=== PATIENT | male | born 1990 | race African-American/Black ===

== ENCOUNTER 2019-01-11 16:00 | Inpatient (IN) | payer MEDICAID, OTHER ==
[~2019-01-11] VITALS: Ht 172.7 cm; Wt 66.2 kg
[2019-01-11 16:07] VITALS: BP 174/115
--- NOTE | 2019-01-11 16:19 | NUR ---
AAOX 4 , AMB TO LOBBY.
--- NOTE | 2019-01-11 16:25 | NUR ---
PT PLACE ON CHAIR E, REPORT/CHART GIVEN TO DR WONG, DR SALGUERO ON BREAK
--- NOTE | 2019-01-11 16:27 | NUR ---
DR WONG EVALUATING AAO X4 PT ON CHAIR E
--- NOTE | 2019-01-11 16:53 | NUR ---
PT TRANSFERRED TO BED 10
--- NOTE | 2019-01-11 16:53 | NUR ---
MOVED TO ER BED 10
[2019-01-11] MEDS ORDERED: FUROSEMIDE 40 MG/4 ML VIAL IVP ONE (16:55)
[2019-01-11] MEDS ORDERED: NITROGLYCERIN 2% 1 GM PKT TP ONE (16:55)
--- NOTE | 2019-01-11 17:07 | NUR ---
PT C/O SOB AND FATIGUE X2DAYS. PT STATES CHEST PAIN THAT RADIATES TO ABD, SHARP 8/10 PAIN. NAUSEA, DENIES VOMITING AND DIARRHEA. PT ATTENDS DIALYSIS M,W,F BUT MISSED LAST 2 APPTS DUE TO "NOT FEELING GOOD ENOUGH TO DRIVE" PT HAD FEVER OF 101.3 WEDNESDAY, NO PRESENT FEVER. PT DIALYSIS PORT IN RA. UNLABORED BREATH, NO ACCESSORY MUSCLE USE. PT TAKING DEEP BREATHS. O2 SAT 96 ON RA. PT SITTING IN BED RELAXED, NO RESPIRATORY DISTRESS. MEDHX: CHF, CARDIAC DISEASE, RENAL FAILURE, CHRONIC HTN
--- NOTE | 2019-01-11 17:20 | NUR ---
PT REFUSED NITRO PATCH AND IVP LASIX. STATES NITRO GIVES A HEADACHE AND DOES NOT WANT AN IV STARTED.
[2019-01-11] MEDS ORDERED: FUROSEMIDE 40 MG TAB ONE (17:42)
[2019-01-11] MEDS ORDERED: FUROSEMIDE 40 MG TAB PO ONE (17:45)
[2019-01-11 17:49] LABS: BASOPHILS % (AUTO) 0.3 % (0.0-2.0); EOSINOPHILS # (AUTO) 0.2 K/uL (0-0.4); EOSINOPHILS % (AUTO) 2.9 % (0.0-4.0); HEMATOCRIT 25.6 % (36-52); HEMOGLOBIN 8.3 g/dL (12.0-18.0); LYMPHOCYTES # (AUTO) 0.8 K/uL (2.0-11.5); LYMPHOCYTES % (AUTO) 10.4 % (20.5-51.1); MEAN CORPUSCULAR HEMOGLOBIN 29 pg (27-31); MEAN CORPUSCULAR HGB CONC 32 g/dL (33-37); MEAN CORPUSCULAR VOLUME 88.5 fL (80-94); MONOCYTES # (AUTO) 0.2 K/uL (0.8-1.0); MONOCYTES % (AUTO) 2.4 % (1.7-9.3); NEUTROPHILS # (AUTO) 6.6 K/uL (1.8-7.7); PLATELET COUNT (AUTO) 208 K/uL (140-450); RED BLOOD CELL COUNT(AUTO) 2.89 MIL/uL (4.20-6.10); RED CELL DISTRIBUTION WIDTH 15.7 % (11.6-13.7); WHITE BLOOD COUNT (AUTO) 7.9 K/uL (4.8-10.8)
[2019-01-11 18:10] LABS: ANION GAP 22.5 (8-16); CARBON DIOXIDE 23.8 mmol/L (21-32); POTASSIUM 5.3 mmol/L (3.5-5.1); TOTAL BILIRUBIN 0.7 mg/dL (0.0-1.0)
[2019-01-11 18:11] LABS: ALBUMIN 3.4 g/dL (3.4-5.0)
[2019-01-11 18:16] LABS: CREATININE 15.2 mg/dL (0.7-1.3)
[2019-01-11] MEDS ORDERED: NACL 0.9% 1,000 ML IV SCH (18:43)
[2019-01-11] MEDS ORDERED: DOCUSATE SODIUM 100 MG GELCAP PO PRN (18:45)
[2019-01-11] MEDS ORDERED: HYDROcodone/APAP 7.5/325 MG 1 TAB PO PRN (18:45)
[2019-01-11] MEDS ORDERED: ACETAMINOPHEN 325 MG TAB PO PRN (18:45)
--- NOTE | 2019-01-11 18:58 | NUR ---
PT REFUSED IV. NOTIFIED
[2019-01-11 19:18] LABS: APPEARANCE,URINE CLEAR (CLEAR); BILIRUBIN,URINE NEGATIVE (NEGATIVE); BLOOD, URINE 1+ (NEGATIVE); COLOR,URINE YELLOW (YELLOW); LEUKOCYTE ESTERASE ,URINE NEGATIVE (NEGATIVE); NITRITE, URINE NEGATIVE (NEGATIVE); UGLUCOSE TRACE (NEGATIVE)
[2019-01-11 19:19] LABS: BARBITURATE, URINE NEGATIVE ng/ml (NEG <=200); BENZODIAZEPINE, URINE NEGATIVE ng/mL (NEG <=200); CANNABINOID, URINE NEGATIVE ng/mL (NEG <=50); COCAINE, URINE NEGATIVE ng/mL (NEG <=300); OPIATE, URINE NEGATIVE ng/mL (NEG <=2000); PHENCYCLIDINE SCREEN,URINE NEGATIVE ng/mL (NEG <=25)
--- NOTE | 2019-01-11 19:26 | NUR ---
TECH INTERN NOTIFIED OF CALL FOR DIALYSIS. SUP TO CALL DIALYSIS CENTER FOR ORDERS.
[2019-01-11 19:30] LABS: PROTHROMBIN TIME 11.1 secs (10.8-13.4)
[2019-01-11] MEDS ORDERED: ALBUTEROL SULFATE/IPRATROPIU 3 ML SOL IH PRN (19:30)
[2019-01-11 19:31] LABS: RBC,URINE 0-5 /HPF (0-5)
[2019-01-11 19:35] LABS: MAGNESIUM 2.4 mg/dL (1.8-2.4); PHOSPHORUS 8.3 mg/dL (2.5-4.9)
[2019-01-11 19:36] LABS: THYROID STIMULATING HORMONE 3.05 uIU/mL (0.34-3.74)
--- NOTE | 2019-01-11 19:50 | NUR ---
PT AGREED TO HAVE IV PLACED. 18G IV PLACED ON R EJ. PT TOLERATED WELL.
[2019-01-11] MEDS ORDERED: AMLO10TA PO (19:53)
[2019-01-11] MEDS ORDERED: SPIR25TA21 PO (19:53)
[2019-01-11] MEDS ORDERED: MIRT30TA PO (19:53)
[2019-01-11] MEDS ORDERED: LON10 PO (19:53)
[2019-01-11] MEDS ORDERED: VITA1TAB44 PO (19:53)
[2019-01-11] MEDS ORDERED: ONDA4ODT2 PO (19:53)
[2019-01-11] MEDS ORDERED: DILT120C19 PO (19:53)
[2019-01-11] MEDS ORDERED: CLON0.3T41 PO (19:53)
[2019-01-11] MEDS ORDERED: PRAZ5CAP PO (19:53)
--- NOTE | 2019-01-11 19:58 | NUR ---
Patient will be admitted to care of DR AGUIRRE. Admited to TELE. Will go to room 117. Belongings list completed. Report to SINA DUNCAN.
[2019-01-11 20:05] VITALS: BP 171/97
--- NOTE | 2019-01-11 20:49 | NUR ---
PT REFUSED ABG. WILL NOTIFY
[2019-01-11] MEDS ORDERED: CLONIDINE HCL 0.3 MG PO SCH (21:00)
[2019-01-11] MEDS ORDERED: PRAZOSIN HCL 10 MG PO SCH (21:00)
[2019-01-11] MEDS: MINOXIDIL 10 MG TAB PO SCH (21:00)
[2019-01-11] MEDS ORDERED: DILTIAZEM HCL 240 MG PO SCH (21:00)
[2019-01-11] MEDS: MORPHINE SULFATE 2 MG/ML SYR IVP PRN (21:13)
[2019-01-11] MEDS: ONDANSETRON 4 MG/2 ML VIAL IM/IVP PRN (21:13)
--- NOTE | 2019-01-11 21:13 | NUR ---
MORPHINE 2 MG IVP ADMINISTERED REQUESTED RT PAIN/GENERALIZED.
[2019-01-11] MEDS: MIRTAZAPINE 15 MG TAB PO SCH (21:20)
[2019-01-11 21:45] LABS: CHOL/HDL RATIO 2.6 (1-4.5)
[2019-01-12 00:42] VITALS: BP 170/93
[2019-01-12] MEDS ORDERED: diphenhydrAMINE 50 MG/ML VIAL ONE (00:49)
--- NOTE | 2019-01-12 00:52 | NUR ---
BENADRYL 25 MG IVP ADMINISTERED ORDERED BY MD MARTINEZ/TUMBLER DRIER OPERATOR TO RESIDENT.
[2019-01-12] MEDS ORDERED: diphenhydrAMINE 50 MG/ML VIAL IVP SCH ×2 (01:00→13:12)
--- NOTE | 2019-01-12 02:15 | NUR ---
HEMODIALYSIS DONE. OUTPUT WAS 3.5 LITERS. NO COMPLAINTS DONE. CALL LIGHT WITH IN REACH. VS WNL.
--- NOTE | 2019-01-12 02:18 | NUR ---
HSPT TUTOR INFORMED ME THAT PT. REFUSED TO BE DRAWN BLOOD ORDERED. PER HSPT TUTOR THEY WILL TRY AGAIN LATER AND CONVINCE HIM.
[2019-01-12 04:18] VITALS: BP 171/96
[2019-01-12] MEDS ORDERED: hydrALAZINE 20 MG/ML VIAL IVP SCH (05:30)
--- NOTE | 2019-01-12 06:01 | NUR ---
PT. NEVER SLEPT THE WHOLE NIGHT. " I NEVER SLEEP NO MATTER WHAT KIND OF SLEEPING PILLS THEY GIVE ME. " ABLE TO VERBALIZE NEEDS WELL IN [place]. CALL LIGHT WITH IN REACH. NO FURTHER COMPLAINTS DONE. WATCHING MOVIE IN HIS CELL PHONE ALL NIGHT LONG. ENCOURAGED TO TRY AND RELAX AND SLEEP. "I WILL TRY"
--- NOTE | 2019-01-12 07:25 | NUR ---
RECEIVED PT FROM TRAFFIC SAFETY ADMINISTRATOR NURSESINA, PT IS AWAKE AND SEATED ON THE BED, WATCHING ON HIS CP, IV LINE ON THE RT IJ G. 18 ON N SALINE LOCK, RT AV SHUNT FOR DIALYSIS, SIDE RAILS ARE UP AND CALL LIGHT WITHIN REACH, PT C/O PAIN RATE OF 8/10 ON THE CHEST, WILL MEDICATE AND NO SIGN OF DISTRESS NOTED. WILL MONITOR PT.
[2019-01-12 08:00] VITALS: BP 171/100
[2019-01-12 08:07] LABS: T4 (THYROXINE) 5.8 ug/dL (4.5-12.0)
--- NOTE | 2019-01-12 08:22 | NUR ---
PATIENT HAS BEEN SCREENED AND CATEGORIZED MODERATE NUTRITION RISK. PATIENT WILL BE SEEN WITHIN 3-5 DAYS OF ADMISSION. 01/14/[address]
[2019-01-12] MEDS: SPIRONOLACTONE 25 MG TAB PO SCH (08:29)
[2019-01-12] MEDS: FUROSEMIDE 20 MG/2 ML VIAL IVP SCH (08:29)
[2019-01-12] MEDS: VIT-B COMP/VIT-C/FOLIC ACID 1 TAB PO SCH (08:29)
[2019-01-12] MEDS: cloNIDine 0.1 MG TAB PO SCH ×2 (08:31→20:27)
[2019-01-12] MEDS: MORPHINE SULFATE 2 MG/ML SYR IVP PRN ×2 (08:32→17:43)
--- NOTE | 2019-01-12 08:32 | NUR ---
PT IS AWAKE AND PARAMETER [id number], BP IS 171/100, PULSE I92, O2 SATURATION IS 98%, ORAL AD IV PUSH MEDICATIONS WERE GIVEN, PT C/O PAIN RATE OF 8/10 ON THE CHEST AND PAIN MEDICATION WAS GIVEN WELL. WILL RE-ASSESS MPAIN AND MONITOR PT.
[2019-01-12] MEDS: MINOXIDIL 10 MG TAB PO SCH ×2 (09:00→20:27)
[2019-01-12 11:08] LABS: BASOPHILS # (AUTO) 0.1 K/uL (0.00-0.22); BASOPHILS % (AUTO) 1.5 % (0.0-2.0); EOSINOPHILS # (AUTO) 0.2 K/uL (0-0.4); EOSINOPHILS % (AUTO) 2.3 % (0.0-4.0); HEMATOCRIT 24.1 % (36-52); HEMOGLOBIN 7.9 g/dL (12.0-18.0); LYMPHOCYTES # (AUTO) 0.7 K/uL (2.0-11.5); LYMPHOCYTES % (AUTO) 8.7 % (20.5-51.1); MEAN CORPUSCULAR HEMOGLOBIN 29 pg (27-31); MEAN CORPUSCULAR HGB CONC 33 g/dL (33-37); MEAN CORPUSCULAR VOLUME 88.5 fL (80-94); MONOCYTES # (AUTO) 0.3 K/uL (0.8-1.0); MONOCYTES % (AUTO) 4.3 % (1.7-9.3); NEUTROPHILS # (AUTO) 6.7 K/uL (1.8-7.7); NEUTROPHILS % (AUTO) 83.2 % (42.2-75.2); PLATELET COUNT (AUTO) 201 K/uL (140-450); RED BLOOD CELL COUNT(AUTO) 2.73 MIL/uL (4.20-6.10); RED CELL DISTRIBUTION WIDTH 15.3 % (11.6-13.7); WHITE BLOOD COUNT (AUTO) 8.1 K/uL (4.8-10.8)
[2019-01-12] MEDS: SEVELAMER CARBONATE 800 MG TAB PO SCH ×2 (11:11→17:42)
--- NOTE | 2019-01-12 11:11 | NUR ---
PT IS AWAKE AND ORAL MEDICATION WAS GIVEN PT TOLERATED IT. WILL MONITOR PT.
[2019-01-12 11:22] LABS: ANION GAP 14.3 (8-16); POTASSIUM 4.3 mmol/L (3.5-5.1)
[2019-01-12 11:23] LABS: CREATININE 9.5 mg/dL (0.7-1.3)
[2019-01-12 12:00] VITALS: BP 162/99
[2019-01-12] MEDS ORDERED: DILTIAZEM 120 MG CAPER PO SCH (12:00)
--- NOTE | 2019-01-12 13:20 | NUR ---
PT'S BP WAS CHECKED NOW AND IS 167/104, PULSE IS 101, O2 SATURATION IS 98% AND INFORMED DR. FLORIAN.
--- NOTE | 2019-01-12 13:28 | NUR ---
PT WAS GIVEN BENADRYL IV PUSH NOW PER PT'S REQUEST PRIOR TO DIALYSIS, DR. FLORIAN WAS INFORMED. WILL MONITOR PT.
--- NOTE | 2019-01-12 13:35 | NUR ---
DIALYSIS HAD STARTED TO PT NOW.
--- NOTE | 2019-01-12 14:44 | NUR ---
DR. FLORIAN MADE A VERBAL ORDER TO ,CANCEL THE DAMEONHIN ORDER FOR THE PT. ACKNOWLEDGED AND CARRIED OUT ORDER.
[2019-01-12 16:00] VITALS: BP 154/78
--- NOTE | 2019-01-12 16:30 | NUR ---
DIALYSIS WAS FINISHED NOW AND 3L OUTPUT WAS TAKEN, BP IS 154/78, PULSE IS 89, AND TEMPERATURE IS 97.8. NO SIGN OF DISTRESS NOTED TO THE PT. WILL MONITOR PT.
--- NOTE | 2019-01-12 17:03 | NUR ---
CAME TO PT'S ROOM AND PT IS SLEEPING NOW, RESPIRATION IS EVEN AND NO SIGN OF DISTRESS NOTED. WILL MONITOR PT
[2019-01-12] MEDS: amLODIPine 5 MG TAB PO SCH (17:43)
--- NOTE | 2019-01-12 19:15 | NUR ---
ENDORSED PT TO POWERHOUSE ENGINEER NURSEMIKE, FOR CONTINUITY OF CARE.
--- NOTE | 2019-01-12 19:16 | NUR ---
REPORT RECEIVED FROM AM NURSE AT BEDSIDE. PT IN STABLE CONDITION. AAOX4. INTRODUCED SELF TO PT. BOARD UPDATED. NO COMPLAINTS OF PAIN. NO SOB. AFEBRILE. PT IS AMBULATORY. PT HAS A RIGHT ARM RESTRICTION DUE TO R AV SHUNT. IV SITE R EJ 18G SL PATENT AND INTACT. SKIN WARM, DRY, AND INTACT WITH NO OPEN WOUNDS. BED LOCKED IN LOW POSITION. CALL RODRIGUEZ WITHIN REACH. SAFETY PRECAUTION IN PLACE. ALL NEEDS MET AT THIS TIME.
[2019-01-12 20:00] VITALS: BP 176/107
[2019-01-12] MEDS: MIRTAZAPINE 15 MG TAB PO SCH (20:26)
--- NOTE | 2019-01-12 20:27 | NUR ---
REMERON, CATAPRES, LONITEN, AND TYL GIVEN PO. PT TOLERATED WELL. PT HAS LOW GRADE FEVER OF 99.6. PRAZOSIN UNAVAILABLE IN PSYCHIATRIC. SOUR BLEACHING PLEATER NOTIFIED. SAID SHE WILL CALL [facility] TO REFILL FOR PATIENT.
[2019-01-12] MEDS ORDERED: PRAZOSIN 1 MG CAP PO SCH (21:00)
[2019-01-12] MEDS: PRAZOSIN 1 MG CAP PO SCH (21:21)
--- NOTE | 2019-01-12 21:21 | NUR ---
PRAZOSIN GIVEN PO. PT TOLERATED WELL.
--- NOTE | 2019-01-12 23:30 | NUR ---
PT WATCHING MOVIES ON HIS PHONE. NO S/S OF DISTRESS NOTED. WILL CONTINUE TO MONITOR.
[2019-01-13] VITALS (8 sets, daily range): BP systolic 152–191; BP diastolic 92–121
--- NOTE | 2019-01-13 01:20 | NUR ---
PT WATCHING MOVIES ON HIS PHONE AND TV. NO S/S OF DISTRESS NOTED. PT BLOOD PRESSURE IS HIGH BUT IS A DIALYSIS PATIENT. RESPIRATIONS EVEN, UNLABORED, AND WNL. WILL CONTINUE TO MONITOR.
--- NOTE | 2019-01-13 02:55 | NUR ---
PT SLEEPING COMFORTABLY IN BED BUT AROUSABLE. NO S/S OF DISTRESS NOTED. NO COMPLAINTS OF PAIN. NO SOB. AFEBRILE. WILL CONTINUE TO MONITOR.
[2019-01-13] MEDS: MORPHINE SULFATE 2 MG/ML SYR IVP PRN ×4 (04:18→22:41)
--- NOTE | 2019-01-13 04:18 | NUR ---
BP 178/110. MD NOTIFIED OF PT'S BP. ORDERED HYDRALAZINE IVP. PT TOLERATED WELL. MORPHINE GIVEN FOR 8/10 CHEST PAIN. PT TOLERATED WELL.
[2019-01-13] MEDS ORDERED: hydrALAZINE 20 MG/ML VIAL IVP SCH (04:30)
--- NOTE | 2019-01-13 05:30 | NUR ---
PT AWAKE AND ALERT WATCHING TV. NO S/S OF DISTRESS NOTED. WILL CONTINUE TO MONITOR.
--- NOTE | 2019-01-13 06:45 | NUR ---
PT AWAKE AND ALERT WATCHING MOVIES ON HIS PHONE. NO S/S OF DISTRESS NOTED. PT IN STABLE CONDITION.
--- NOTE | 2019-01-13 07:10 | NUR ---
REPORT RECEIVED FROM NIGHT NURSE AT BEDSIDE. PATIENT BERENICEO X3 IN STABLE CONDITION. NO PAIN REPORTED. IV R EJ SALINE LOCKED 18G. SKIN WARM DRY AND INTACT. REVIEWED PLAN OF CARE. REINFORCEMENT NEEDED. CALL RODRIGUEZ WITHIN REACH. SAFETY PRECAUTIONS IN PLACE. ALL NEEDS MET AT THIS TIME. WILL CONTINUE TO MONITOR. Addendum: 01/13/19 at 0828 by Nakul Cerna RN AAO X4
[2019-01-13] MEDS ORDERED: hydrALAZINE 25 MG TAB PO SCH (09:00)
[2019-01-13] MEDS: cloNIDine 0.1 MG TAB PO SCH ×2 (09:02→20:40)
[2019-01-13] MEDS: MINOXIDIL 10 MG TAB PO SCH ×2 (09:04→20:41)
[2019-01-13] MEDS: DILTIAZEM 120 MG CAPER PO SCH (09:06)
[2019-01-13] MEDS: SEVELAMER CARBONATE 800 MG TAB PO SCH ×3 (09:07→17:40)
[2019-01-13] MEDS: VIT-B COMP/VIT-C/FOLIC ACID 1 TAB PO SCH (09:07)
[2019-01-13] MEDS: SPIRONOLACTONE 25 MG TAB PO SCH (09:07)
[2019-01-13] MEDS: FUROSEMIDE 20 MG/2 ML VIAL IVP SCH (09:08)
[2019-01-13] MEDS: hydrALAZINE 25 MG TAB PO SCH ×3 (09:09→17:40)
[2019-01-13] MEDS: PRAZOSIN 1 MG CAP PO SCH ×3 (09:31→22:38)
--- NOTE | 2019-01-13 09:32 | NUR ---
MEDICATIONS ADMINISTERED PER ORDER. PRN MORPHINE GIVEN POR SARY OF 7. PATIENT TOLERATED WELL AND COMFORTABLE. WILL CONTINUE TO MONITOR
[2019-01-13 10:04] LABS: EOSINOPHILS # (AUTO) 0.4 K/uL (0-0.4); LYMPHOCYTES # (AUTO) 1.2 K/uL (2.0-11.5); MEAN CORPUSCULAR VOLUME 88.6 fL (80-94); WHITE BLOOD COUNT (AUTO) 10.3 K/uL (4.8-10.8)
[2019-01-13 10:06] LABS: BASOPHILS # (AUTO) 0.1 K/uL (0.00-0.22); BASOPHILS % (AUTO) 1.3 % (0.0-2.0); LYMPHOCYTES % (AUTO) 11.2 % (20.5-51.1); MEAN CORPUSCULAR HEMOGLOBIN 29 pg (27-31); MEAN CORPUSCULAR HGB CONC 32 g/dL (33-37); MONOCYTES # (AUTO) 0.7 K/uL (0.8-1.0); MONOCYTES % (AUTO) 6.5 % (1.7-9.3); PLATELET COUNT (AUTO) 170 K/uL (140-450); RED BLOOD CELL COUNT(AUTO) 2.82 MIL/uL (4.20-6.10); RED CELL DISTRIBUTION WIDTH 15.2 % (11.6-13.7)
[2019-01-13 11:32] LABS: ANION GAP 15.4 (8-16); CARBON DIOXIDE 31.8 mmol/L (21-32); POTASSIUM 3.2 mmol/L (3.5-5.1)
[2019-01-13 11:34] LABS: CREATININE 7.5 mg/dL (0.7-1.3)
--- NOTE | 2019-01-13 12:00 | NUR ---
HEMODIALYSIS NURSE AT BEDSIDE TO START HD. WILL CONTINUE TO MONITOR.
[2019-01-13] MEDS ORDERED: diphenhydrAMINE 50 MG/ML VIAL IVP SCH (13:30)
--- NOTE | 2019-01-13 13:32 | NUR ---
MEDICATIONS ADMINISTERED PER ORDER. PATIENT TOLERATED WELL. PATIENT RECEIVING DIALYSIS. WILL CONTINUE TO MONITOR
--- NOTE | 2019-01-13 15:45 | NUR ---
PATIENT ON DIALYSIS. NO DISTRESS NOTED. CONDITION UNCHANGED. WILL CONTINUE TO MONITOR.
--- NOTE | 2019-01-13 15:50 | NUR ---
01/13/19 RD INITIAL ASSESSMENT COMPLETED PLEASE REFER TO NUTRITION ASSESSMENT UNDER CARE ACTIVITY FOR ESTIMATED NUTRITIONAL NEEDS. 1. CONTINUE RENAL DIET WITH NEPRO TID TOLERATED 2. RD PROVIDED NUTRITION EDUCATION, PATIENT ACCEPTED. 3. ENCOURAGE PO INTAKE AND SUPPLEMENT INTAKE ABOVE 50% 4. RD TO FOLLOW-UP 3-5 DAYS, MODERATE RISK COOPER LEBLANC, RD
--- NOTE | 2019-01-13 16:35 | NUR ---
HD COMPLETE, 3L OUT. PATIENT IN NO DISTRESS. WILL CONTINUE TO MONITOR
[2019-01-13 17:25] LABS: MAGNESIUM 1.8 mg/dL (1.8-2.4); PHOSPHORUS 5.3 mg/dL (2.5-4.9)
[2019-01-13] MEDS: amLODIPine 5 MG TAB PO SCH (17:40)
[2019-01-13] MEDS: ONDANSETRON 4 MG/2 ML VIAL IM/IVP PRN (17:47)
--- NOTE | 2019-01-13 17:54 | NUR ---
PATIENT SITTING AT BEDSIDE CHAIR WATCHING TV. NO DISTRESS NOTED. COMPLAINS OF NAUSEA AND PAIN. ZOFRAN AND MORPHINE GIVEN PER MD ORDERS. OTHER SCHEDULED MEDICATIONS DUE GIVEN. PATIENT TOLERATED WELL. WILL CONTINUE TO MONITOR.
[2019-01-13] MEDS ORDERED: hydrALAZINE 20 MG/ML VIAL IVP PRN (18:35)
--- NOTE | 2019-01-13 19:16 | NUR ---
GAVE REPORT TO DUAL RATE DEALER NURSE FOR CONTINUITY OF CARE. PATIENT IN STABLE CONDITION.
--- NOTE | 2019-01-13 19:30 | NUR ---
RECEIVED TELE PATIENT FROM DAY NURSE, A&OX4, RIGHT EXTERNAL JUGULAR 18 G, INTACT, NS LOCK, SITTING ON CHAIR, WATCHING A MOVIE ON PHONE, SKIN INTACT, NO COMPLAINTS OF PAIN, RIGHT AV SHUNT, WILL CONTINUE TO MONITOR.
[2019-01-13] MEDS: MIRTAZAPINE 15 MG TAB PO SCH (20:40)
--- NOTE | 2019-01-13 20:40 | NUR ---
PT BLOOD PRESSURE IS 160/92,HR-96. CALLED DR. LEE AND MADE HER AWARE. SHE SAID TO HOLD THE LABETALOL FOR NOW.
--- NOTE | 2019-01-13 20:45 | NUR ---
PT REFUSED TO TAKE THE MINIPRES AT THIS TIME. BP 160/92. WILL CONTINUE TO MONITOR.
[2019-01-13] MEDS: LABETALOL 100 MG TAB PO SCH (22:36)
--- NOTE | 2019-01-13 22:38 | NUR ---
PT BLOOD PRESSURE ELEVATED AGAIN. DR. LEE MADE AWARE. SHE SAID TO GIVE THE LABETALOL AND ALSO THE MINIPRES THAT PT REFUSED EARLIER. WILL CONTINUE TO MONITOR.
[2019-01-14] VITALS (7 sets, daily range): BP systolic 144–169; BP diastolic 86–107
[2019-01-14] MEDS ORDERED: diphenhydrAMINE 50 MG/ML VIAL IVP ONE (00:10)
[2019-01-14] MEDS: diphenhydrAMINE 50 MG/ML VIAL IVP SCH (00:15)
--- NOTE | 2019-01-14 00:15 | NUR ---
PATIENT COMPLAINED OF ITCHINESS, DR. LEE RESIDENT, MADE AWARE WITH ORDER, BENADRYL WAS GIVEN 25 MG IV PUSH, WILL CONTINUE TO MONITOR.
--- NOTE | 2019-01-14 02:00 | NUR ---
MADE ROUNDS ON PATIENT, WATCHING MOVIES ON PHONE, NO MORE COMPLAINTS OF ITCHING, WILL CONTINUE TO MONITOR.
--- NOTE | 2019-01-14 03:50 | NUR ---
PT ASLEEP. NO C/O ANY PAIN/DISCOMFORT AT THIS TIME.
--- NOTE | 2019-01-14 07:15 | NUR ---
REPORT RECEIVED FROM NIGHT NURSE AT BEDSIDE. PATIENT AAO X4 IN STABLE CONDITION. NO PAIN REPORTED. IV R EJ SALINE LOCKED 18G. SKIN WARM DRY AND INTACT. REVIEWED PLAN OF CARE. REINFORCEMENT NEEDED. CALL RODRIGUEZ WITHIN REACH. SAFETY PRECAUTIONS IN PLACE. ALL NEEDS MET AT THIS TIME. WILL CONTINUE TO MONITOR
--- NOTE | 2019-01-14 07:15 | NUR ---
ENDORSED PATIENT IN STABLE CONDITION TO DAY SHIFT NURSE FOR CONTINUITY OF CARE.
[2019-01-14] MEDS: LABETALOL 100 MG TAB PO SCH ×2 (08:24→20:33)
[2019-01-14] MEDS: SPIRONOLACTONE 25 MG TAB PO SCH (08:24)
[2019-01-14] MEDS: VIT-B COMP/VIT-C/FOLIC ACID 1 TAB PO SCH (08:24)
[2019-01-14] MEDS: DILTIAZEM 120 MG CAPER PO SCH (08:25)
[2019-01-14] MEDS: hydrALAZINE 25 MG TAB PO SCH ×3 (08:25→17:05)
[2019-01-14] MEDS: SEVELAMER CARBONATE 800 MG TAB PO SCH ×3 (08:25→17:06)
[2019-01-14] MEDS: MINOXIDIL 10 MG TAB PO SCH ×2 (08:27→20:34)
[2019-01-14] MEDS: cloNIDine 0.1 MG TAB PO SCH ×2 (08:27→20:35)
[2019-01-14] MEDS: PRAZOSIN 1 MG CAP PO SCH (08:29)
[2019-01-14] MEDS: FUROSEMIDE 20 MG/2 ML VIAL IVP SCH (08:30)
[2019-01-14] MEDS: MORPHINE SULFATE 2 MG/ML SYR IVP PRN ×2 (08:53→17:48)
[2019-01-14] MEDS: ONDANSETRON 4 MG/2 ML VIAL IM/IVP PRN (08:53)
[2019-01-14] MEDS ORDERED: EPOETIN ALFA 10,000 UNITS/ML VIAL SUBQ SCH (09:00)
--- NOTE | 2019-01-14 09:01 | NUR ---
MEDICATIONS ADMINISTERED PER ORDER. ADMINISTERED PRN MORPHINE AND ZOFRAN. PATIENT TOLERATED WELL AND IN NO DISTRESS. WILL CONTINUE TO MONITOR
[2019-01-14] MEDS ORDERED: diphenhydrAMINE 50 MG/ML VIAL IVP SCH (12:00)
--- NOTE | 2019-01-14 12:51 | NUR ---
MEDICATIONS ADMINISTERED PER ORDER. PATIENT TOLERATED WELL AND IN NO DISCOMFORT. SAFETY MEASURES IN PLACE. WILL CONTINUE TO MONITOR
[2019-01-14 16:58] LABS: PHOSPHORUS 5.2 mg/dL (2.5-4.9)
[2019-01-14] MEDS: amLODIPine 5 MG TAB PO SCH (17:05)
--- NOTE | 2019-01-14 17:48 | NUR ---
PRN MORPHINE ADMINISTERED POR PAIN PER PATIENT REQUEST. PATIENT TOLERATED WELL. WILL CONTINUE TO MONITOR.
--- NOTE | 2019-01-14 19:21 | NUR ---
GAVE REPORT TO NIGHT NURSE FOR CONTINUITY OF CARE. PATIENT IN STABLE CONDITION
--- NOTE | 2019-01-14 19:22 | NUR ---
RECEIVED BEDSIDE REPORT FROM DAY RN. PT IS AAOX4 ON ROOM AIR. RESPIRATIONS ARE EQUAL AND UNLABORED. C/C SOB. PT AMBULATORY AND ABLE TO MAKE NEEDS KNOWN, HAS R AV SHUNT HD (MWF) LAST HD 01/13 NEXT DENZEL WEDNESDAY. IV ON R EJ 18G SL. SKIN IS INTACT. POC DISCUSSED. PTS B/P BEING MONITORED. ALL NEEDS MET AT THIS TIME, CALL LIGHT IS WITHIN REACH. WILL CONTINUE TO MONITOR.
[2019-01-14] MEDS: MIRTAZAPINE 15 MG TAB PO SCH (20:35)
--- NOTE | 2019-01-14 20:35 | NUR ---
VITAL SIGNS: 150/94 HR 103 RR 17 98% RA. DENZEL MEDICATIONS GIVEN. HELD MINIPRES WILL RECHECK B/P IN 60-90MIN. ADMINISTERED THREE OTHER TYPES OF B/P MEDICATIONS. EDUCATED PT OF S/E OF MEDICATIONS. GAVE PT JELLO PER REQUEST. CALL LIGHT IS WITHIN REACH. WILL CONTINUE TO MONITOR.
[2019-01-14] MEDS ORDERED: diphenhydrAMINE 50 MG CAP PO ONE (20:50)
--- NOTE | 2019-01-14 21:40 | NUR ---
PT STATES WANTS TO GO AMA PER PT HIS ANXIETY LEVEL IS HIGH AND STATES NOT BEING CONTROLLED WELL HERE IN THE HOSPITAL. PT BEEN RECEIVING BENADRYL 25MG IVP LAST DOSE 8 HOURS AGO. NEW ORDER FOR BENADRYL 50MG PO PT REFUSED. WANTS TO GO HOME PT STATES, " I HAVE BENADRYL AT HOME AND WILL SPOKE MARIJUANA, I NEED TO GO HOME. MY MIND IS MADE UP I ALREADY CALLED MY RIDE." IS AT BEDSIDE EXPLAINING RISK OF LEAVING AMA. PTS CURRENT B/P IS 169/107 HR 104. PT HIGH RISK FOR STROKE. HE VERBALIZED UNDERSTANDING. AMA FORM SIGNED.
--- NOTE | 2019-01-14 22:15 | NUR ---
REMOVED ID BANDS, REMOVED R EJ IV CATH IS INTACT. PT HAS ALL BELONGINGS WITH HIM. [place] SAM WALKING PT OUT TO FRONT LOBBY. PT IS IN STABLE CONDITION AND STEADY GAIT. NO S/S OF DISTRESS.
== END 2019-01-14 22:15 | disposition left against medical advice (07) | DRG 194 ==
LOC: MED 16:00 → MTU 18:43
PROVIDERS: ADMIT General Practice; ATTEND General Practice
PROC: 5A1D70Z Performance of Urinary Filtration, Intermittent, Less than 6 Hours Per Day (ICD-10-PCS; principal; 2019-01-11)
PROC: 5A1D70Z Performance of Urinary Filtration, Intermittent, Less than 6 Hours Per Day (ICD-10-PCS; 2019-01-12)
PROC: 5A1D70Z Performance of Urinary Filtration, Intermittent, Less than 6 Hours Per Day (ICD-10-PCS; 2019-01-13)
DX: I13.2 Hypertensive heart and chronic kidney disease with heart failure and with stage 5 chronic kidney disease, or end stage renal disease (principal); N17.0 Acute kidney failure with tubular necrosis; K72.90 Hepatic failure, unspecified without coma; E87.8 Other disorders of electrolyte and fluid balance, not elsewhere classified; N18.6 End stage renal disease; K21.9 Gastro-esophageal reflux disease without esophagitis; M94.0 Chondrocostal junction syndrome [Tietze]; E83.39 Other disorders of phosphorus metabolism; E87.5 Hyperkalemia; F32.9 Major depressive disorder, single episode, unspecified; E87.6 Hypokalemia; Z53.21 Procedure and treatment not carried out due to patient leaving prior to being seen by health care provider; I50.43 Acute on chronic combined systolic (congestive) and diastolic (congestive) heart failure; Z99.2 Dependence on renal dialysis; D64.9 Anemia, unspecified; Z82.49 Family history of ischemic heart disease and other diseases of the circulatory system; Z83.3 Family history of diabetes mellitus; Z84.1 Family history of disorders of kidney and ureter; Z56.0 Unemployment, unspecified; I16.0 Hypertensive urgency
CPT/HCPCS: 36415; 71045; 80048; 80053; 80305; 81001; 82140; 82150; 83036; 83605; 83690; 83735; 83880; 84100; 84436; 84443; 84484; 85025; 85610; 85730; 87040; 87081; 87086; 90935; 93005; 99285; J0360; J0696; J0885; J1200; J1940; J2270; J2405; J7030; J7060; Q0092; Q0163

== ENCOUNTER 2019-01-29 02:18 | Inpatient (IN) | payer MEDICARE, MEDICAID, OTHER ==
[~2019-01-29] VITALS: Ht 172.7 cm; Wt 70.3 kg
[~2019-01-29 02:18] MED LIST: AMLO10TA PO; CLON0.3T41 PO; DILT120C19 PO; LON10 PO; MIRT30TA PO; ONDA4ODT2 PO; PRAZ5CAP PO; SPIR25TA21 PO; VITA1TAB44 PO
[2019-01-29 02:21] VITALS: BP 180/116
--- NOTE | 2019-01-29 02:21 | NUR ---
28 Y/O M BIB WITH C/O CHEST PAIN WITH SOB X1 WEEK, INCREASING THIS MORNING. 8/10 CHEST PAIN RADIATES TO ABDOMEN. S1,S2 HEART SOUNDS REGULAR AND EVEN. BILATERAL LUNG PULIDO CLEAR. O2 SATURATION AT 95% ON RA. RESPIRATIONS EVEN AND LABORED. PT IN TRIPODING POSTION. PT HYPERTENSIVE AND TACHYCARDIC, BP 180/116 AND HR 105. DENIES V/D AND FEVER/CHILLS. DIALYSIS MWF. RT A/V FISTULA. PT PLACED ON MONITORING SYSTEM. PT SEAT IN BEDSIDE CHAIR FOR COMFORT. ERMD MADE AWARE OF PT STATUS. WILL CONTINUE TO MONITOR. HX: ERSD, CHF, ENLARGED HEART, HTN, HEART DISEASE NKA
--- NOTE | 2019-01-29 02:29 | NUR ---
PT AMBULATED TO BED #11
--- NOTE | 2019-01-29 03:15 | NUR ---
PT CONTINOUS TO BE SEATED IN BEDSIDE. PER PT "IT HELPS ME TO BREATHE BETTER." O2 SATURATION DROPPED TO 92% RA. PT PLACED ON O2 THERAPY, 4L VIA NASAL CANNULA. O2 SATURATION INCREASED TO 100%. WILL CONTINUE TO MONITOR.
[2019-01-29 03:26] LABS: BASOPHILS # (AUTO) 0.1 K/uL (0.00-0.22); BASOPHILS % (AUTO) 1.1 % (0.0-2.0); EOSINOPHILS # (AUTO) 0.4 K/uL (0-0.4); EOSINOPHILS % (AUTO) 3.4 % (0.0-4.0); HEMATOCRIT 24.7 % (36-52); HEMOGLOBIN 7.9 g/dL (12.0-18.0); LYMPHOCYTES # (AUTO) 1.2 K/uL (2.0-11.5); LYMPHOCYTES % (AUTO) 11.1 % (20.5-51.1); MEAN CORPUSCULAR HEMOGLOBIN 29 pg (27-31); MEAN CORPUSCULAR HGB CONC 32 g/dL (33-37); MEAN CORPUSCULAR VOLUME 90.1 fL (80-94); MONOCYTES # (AUTO) 0.1 K/uL (0.8-1.0); MONOCYTES % (AUTO) 1.4 % (1.7-9.3); NEUTROPHILS # (AUTO) 8.8 K/uL (1.8-7.7); PLATELET COUNT (AUTO) 235 K/uL (140-450); RED BLOOD CELL COUNT(AUTO) 2.74 MIL/uL (4.20-6.10); RED CELL DISTRIBUTION WIDTH 14.9 % (11.6-13.7); WHITE BLOOD COUNT (AUTO) 10.6 K/uL (4.8-10.8)
[2019-01-29] MEDS ORDERED: LABETALOL 100 MG/20 ML VIAL IVP ONE (03:40)
--- NOTE | 2019-01-29 03:40 | NUR ---
CONSENT SIGNED FOR CT BY PT.
[2019-01-29 03:41] LABS: PROTHROMBIN TIME 11.4 secs (10.8-13.4)
[2019-01-29 03:43] LABS: ALBUMIN 3.5 g/dL (3.4-5.0); ANION GAP 20.6 (8-16); CARBON DIOXIDE 28.2 mmol/L (21-32); POTASSIUM 3.8 mmol/L (3.5-5.1); TOTAL BILIRUBIN 0.8 mg/dL (0.0-1.0)
[2019-01-29 03:46] LABS: CREATININE 8.9 mg/dL (0.7-1.3)
--- NOTE | 2019-01-29 03:50 | NUR ---
PT HAS INCREASED PAIN, 10/[address] MARTIN MADE AWARE
[2019-01-29] MEDS ORDERED: fentaNYL 0.05 MG/ML VIAL IVP ONE (04:00)
--- NOTE | 2019-01-29 04:56 | NUR ---
PT SEATED ON BEDSIDE CHAIR. VSS AT THIS TIME. WILL CONTINUE TO MONITOR.
--- NOTE | 2019-01-29 05:00 | NUR ---
PT STATED A DECREASE IN PAIN TO 5/10 PAIN.
--- NOTE | 2019-01-29 05:30 | NUR ---
PT SITTING IN CHAIR. VSS. WILL CONTINUE TO MONITOR.
--- NOTE | 2019-01-29 06:30 | NUR ---
PT TO CT WITH PERLA GARDUNO AND JUNITO EMT
--- NOTE | 2019-01-29 06:50 | NUR ---
PT WAS HAVING ANXIETY DURING CT. PT PLACED ON 4L OF O2 FOR COMFORT MEASURES.
--- NOTE | 2019-01-29 07:15 | NUR ---
PT RETURNED FROM CT. PT ON NC 2L OF O2 FOR COMFORT MEASURES.
--- NOTE | 2019-01-29 07:20 | NUR ---
TRANSFER OF CARE AND REPORT GIVEN TO SITAL. SONG.
--- NOTE | 2019-01-29 08:07 | NUR ---
CHECKED ON PT. SLEEPING COMFORTABLY IN HIS BED. O2 SAT 100%, PT ON O2 VIA NC. BREATHING NON-LABORED AND EVEN. NO DISTRESS NOTED AT THIS TIME.
--- NOTE | 2019-01-29 09:29 | NUR ---
Dr. Jones evaluating patient at bedside.
--- NOTE | 2019-01-29 09:41 | NUR ---
checked on pt. c/o of cp at sternum radiating at abdomen 12/10. dr. horn notified. pt sitting on chair. instructed pt to use oxygen via nc, put on O2 via nc at 2lpm. will continue to monitor pt.
[2019-01-29 10:09] LABS: APPEARANCE,URINE CLEAR (CLEAR); BILIRUBIN,URINE NEGATIVE (NEGATIVE); BLOOD, URINE TRACE-I (NEGATIVE); COLOR,URINE YELLOW (YELLOW); LEUKOCYTE ESTERASE ,URINE NEGATIVE (NEGATIVE); NITRITE, URINE NEGATIVE (NEGATIVE); PH,URINE 8.5 (5.0-9.0); UGLUCOSE TRACE (NEGATIVE)
[2019-01-29 10:31] LABS: RBC,URINE 0-5 /HPF (0-5); WBC,URINE 0-5 /HPF (0-5)
[2019-01-29] MEDS ORDERED: NACL 0.9% 1,000 ML IV SCH (10:37)
[2019-01-29] MEDS ORDERED: HYDROcodone/APAP 5/325 MG 1 TAB TAB PO PRN (10:40)
--- NOTE | 2019-01-29 11:09 | NUR ---
PT C/O PAIN. CALLED PHARMACY TO VERIFY ORDER.
--- NOTE | 2019-01-29 11:22 | NUR ---
Dr. Powell evaluating patient at bedside.
--- NOTE | 2019-01-29 11:47 | NUR ---
PATIENT ADMITTED ONTO FLOOR. ADMISSION VITAL SIGNS ARE BP 154/93, AL 95, O2 96%, TEMP 98.2 PATIENT PLACED ON TELE MONITOR, MRSA SWAB OF NARES OBTAINED. IV TO LEFT FOREARM, ON ROOM AIR.
--- NOTE | 2019-01-29 11:47 | NUR ---
Patient will be admitted to care of DR AGUIRRE. Admited to [facility] FLOOR . Will go to room 126. Belongings list completed. Report to PERLA OSBORN.
[2019-01-29 11:52] LABS: BARBITURATE, URINE NEG. ng/ml (NEG <=200); BENZODIAZEPINE, URINE NEG. ng/mL (NEG <=200); CANNABINOID, URINE POS. ng/mL (NEG <=50); COCAINE, URINE NEG. ng/mL (NEG <=300); OPIATE, URINE NEG. ng/mL (NEG <=2000); PHENCYCLIDINE SCREEN,URINE NEG. ng/mL (NEG <=25)
[2019-01-29 12:04] LABS: PHOSPHORUS 7.1 mg/dL (2.5-4.9)
--- NOTE | 2019-01-29 12:15 | NUR ---
PATIENT IS SITTING AT EDGE OF BED WITH ONE SIDE RAIL DOWN. INSTRUCTED PATIENT THAT HE IS POSSIBLY A FALL RISK AND TO GET INTO BED SO I CAN PUT THE BED RAIL UP AND BED ALARM ON. PATIENT REFUSED TO GET INTO BED. PATIENT AMBULATES TO RESTROOM AND PACES IN ROOM FREQUENTLY.
[2019-01-29] MEDS: ONDANSETRON 4 MG/2 ML VIAL IM/IVP PRN (13:24)
[2019-01-29] MEDS: MORPHINE SULFATE 2 MG/ML SYR IVP PRN ×2 (13:24→20:24)
--- NOTE | 2019-01-29 13:25 | NUR ---
ADMINISTERED MORPHINE FOR PAIN 10 AND ZOFRAN FOR NAUSEA. WILL RE-ASSESS PAIN.
--- NOTE | 2019-01-29 15:04 | NUR ---
DIALYSIS CONSENT HAS BEEN SIGNED. DIALYSIS NURSE INFORMED ON COMING TO THE FLOOR FOR DIALYSIS.
[2019-01-29] MEDS ORDERED: diphenhydrAMINE 50 MG/ML VIAL IVP SCH (15:52)
[2019-01-29 16:00] VITALS: BP 166/103
--- NOTE | 2019-01-29 16:07 | NUR ---
ADMINISTERED BENADRYL IVP PRIOR TO DIALYSIS. PT STATED TO ALWAYS RECEIVING IT DURING OR PRIOR D/T ALLERGIES AND ANXIOUSNESS DURING.
[2019-01-29] MEDS: DILTIAZEM 60 MG TAB PO SCH ×2 (16:32→20:27)
[2019-01-29] MEDS: amLODIPine 5 MG TAB PO SCH (16:32)
--- NOTE | 2019-01-29 18:36 | NUR ---
PATIENT IS FINISHING UP WITH HEMODIALYSIS. WILL ENDORSE TO COMMERCIAL CARPET INSTALLER NURSE FOR CONTINUITY OF CARE.
[2019-01-29] MEDS: LORazepam 0.5 MG TAB PO PRN (18:46)
--- NOTE | 2019-01-29 18:46 | NUR ---
ADMINISTERED ATIVAN 0.5MG FOR ANXIETY
--- NOTE | 2019-01-29 19:30 | NUR ---
RECEIVED BEDSIDE REPORT FROM DAY RN. PT IS AAOX4. ON ROOM AIR RESPIRATIONS ARE EQUAL AND UNLABORED. SKIN INTACT. PT IS AMBULATORY WITHOUT ASSIST. IV ON L FA. AV SHUNT ON THANIA. JUST GOT DIALYSIS TODAY 3L OUTPUT. NORMALLY HD M,W,F IN [facility]. LBM WEDNESDAY REPORT LOW APPETITE. POC DISCUSSED WITH PT. ALL QUESTIONS AND CONCERNS ANSWERED. CALL LIGHT IS WITHIN REACH. WILL CONTINUE TO MONITOR.
[2019-01-29 20:00] VITALS: BP 176/107
[2019-01-29] MEDS: MIRTAZAPINE 15 MG TAB PO SCH (20:27)
[2019-01-29] MEDS: cloNIDine 0.1 MG TAB PO SCH (20:27)
--- NOTE | 2019-01-29 20:27 | NUR ---
PT WITH HIGH B/P 176/107 HR 94. ADMINISTERED DENZEL B/P MEDICATIONS. PER PT WANTS TO HOLD MINIPRES 10MG UNTIL B/P IS RECHECKED. PT COMPLAIN OF HOSPITAL FOOD STATES HE HAS NOT EATEN BECAUSE HE HASN'T LIKED ANYTHING. WILL ORDER SANDWICH AND OFFERED JELLO. CALL LIGHT IS WITHIN REACH. WILL CONTINUE TO MONITOR.
[2019-01-29] MEDS: PIPERACILLIN/TAZOBACTAM 2.25 GM in DEXTROSE 5% 50 ML IV SCH (20:28)
[2019-01-29] MEDS: MINOXIDIL 10 MG TAB PO SCH (20:28)
[2019-01-29] MEDS ORDERED: DILTIAZEM 120 MG CAPER PO SCH (21:00)
[2019-01-29] MEDS ORDERED: PRAZOSIN 1 MG CAP PO SCH (21:00)
--- NOTE | 2019-01-29 22:30 | NUR ---
PATIENT IS SLEEPING COMFORTABLY IN BED. CHEST RISE AND FALL. CALL LIGHT IS WITHIN REACH. WILL CONTINUE TO MONITOR.
[2019-01-30] VITALS: BP 174/100
--- NOTE | 2019-01-30 | NUR ---
VITAL SIGNS ARE WITHIN NORMAL LIMITS. ALL NEEDS MET AT THIS TIME. CALL LIGHT IS WITHIN REACH. WILL CONTINUE TO MONITOR.
--- NOTE | 2019-01-30 02:00 | NUR ---
PATIENT IS SLEEPING COMFORTABLY IN BED. CHEST RISE AND FALL. CALL LIGHT IS WITHIN REACH. WILL CONTINUE TO MONITOR.
[2019-01-30] MEDS: ONDANSETRON 4 MG/2 ML VIAL IM/IVP PRN ×3 (03:51→22:18)
[2019-01-30] MEDS: MORPHINE SULFATE 2 MG/ML SYR IVP PRN ×4 (03:51→22:30)
--- NOTE | 2019-01-30 03:51 | NUR ---
ATIVAN AND MORPHINE GIVEN IVP. PT TOLERATED WELL.
[2019-01-30 04:00] VITALS: BP 164/100
[2019-01-30] MEDS: PIPERACILLIN/TAZOBACTAM 2.25 GM in DEXTROSE 5% 50 ML IV SCH ×3 (04:15→20:41)
--- NOTE | 2019-01-30 04:25 | NUR ---
VITAL SIGNS ARE WITHIN NORMAL LIMITS. GAVE JELLO AND ICE CHIPS PER REQUEST. PT SITTING AT EDGE OF BED WATCHING VIDEOS ON CELL PHONE. NO S/S OF DISTRESS. CALL LIGHT IS WITHIN REACH. WILL CONTINUE TO MONITOR.
[2019-01-30] MEDS: MINOXIDIL 10 MG TAB PO SCH ×2 (04:42→20:34)
--- NOTE | 2019-01-30 07:19 | NUR ---
GAVE BEDSIDE REPORT TO DAY RN. PT ENDORSED IN STABLE CONDITION.
--- NOTE | 2019-01-30 07:30 | NUR ---
RECEIVED BEDSIDE REPORT FROM PM RN. PT IS AWAKE, ALERT. ON ROOM AIR RESPIRATIONS ARE EQUAL AND UNLABORED. SKIN INTACT. PT SITTING AT THE EDGE OF THE BED. IV ON L FA. AV SHUNT ON THANIA. POC DISCUSSED WITH PT. ALL QUESTIONS ANSWERED. CALL LIGHT IS WITHIN REACH. WILL CONTINUE TO MONITOR.
[2019-01-30 08:00] VITALS: BP 173/114
--- NOTE | 2019-01-30 08:26 | NUR ---
PATIENT HAS BEEN SCREENED AND CATEGORIZED HIGH NUTRITION RISK. PATIENT WILL BE SEEN WITHIN 1-2 DAYS OF ADMISSION. 01/29/19-01/30/[address]
[2019-01-30] MEDS ORDERED: EPOETIN ALFA 10,000 UNITS/ML VIAL IV SCH (09:41)
[2019-01-30] MEDS: DILTIAZEM 60 MG TAB PO SCH ×4 (09:44→20:29)
[2019-01-30] MEDS: cloNIDine 0.1 MG TAB PO SCH ×2 (09:44→20:31)
[2019-01-30] MEDS: VIT-B COMP/VIT-C/FOLIC ACID 1 TAB PO SCH (09:45)
[2019-01-30] MEDS: SPIRONOLACTONE 25 MG TAB PO SCH (09:45)
--- NOTE | 2019-01-30 09:48 | NUR ---
PT REFUSED HEPARIN, RISKS AND BENEFITS EXPLAINED TO PT, PT STILL REFUSED. PT STATED HEPARIN WILL MESS UP HIS HD.
[2019-01-30] MEDS ORDERED: PRAZOSIN 5 MG PO SCH (11:00)
[2019-01-30 12:00] VITALS: BP 172/112
[2019-01-30] MEDS: LORazepam 0.5 MG TAB PO PRN (12:26)
--- NOTE | 2019-01-30 14:00 | NUR ---
ENDORSED PT TO CHARGE NURSE. PT IN DIALYSIS.
[2019-01-30 16:00] VITALS: BP 151/92
[2019-01-30] MEDS ORDERED: diphenhydrAMINE 50 MG/ML VIAL IVP SCH (16:00)
--- NOTE | 2019-01-30 16:30 | NUR ---
RECEIVED BEDSIDE REPORT FROM CHARGE NURSE ARTUR. PATIENT IS AWAKE, ALERT AND ORIENTEDX4. NO SIGNS OF DISTRESS ON RA. SKIN IS INTACT. AMBULATORY. CONTINENT. IV ON L FA 20 SL. CLEAN, DRY AND INTACT. PATIENT ABLE TO MAKE NEEDS KNOWN. BED IN LOW POSITION. CALL LIGHT WITHIN REACH. WILL CONTINUE TO MONITOR THE PATIENT
--- NOTE | 2019-01-30 16:38 | NUR ---
ADMINISTERED DENZEL MED. EDUCATED ON SIDE EFFECTS. PATIENT TOLERATING WELL. DIALYSIS NURSE AT BEDSIDE
--- NOTE | 2019-01-30 17:00 | NUR ---
COMMUNICATED TO PT ABOUT SPUTUM SAMPLE. SPUTUM CUP AT BEDSIDE.
--- NOTE | 2019-01-30 17:02 | NUR ---
01/30/19 RD INITIAL ASSESSMENT COMPLETED PLEASE REFER TO NUTRITION ASSESSMENT UNDER CARE ACTIVITY FOR ESTIMATED NUTRITIONAL NEEDS. 1. CONTINUE REGULAR DIET TOLERATED 2. RECOMMEND NEPRO BID 3. RD TO FOLLOW-UP 3-5 DAYS, MODERATE RISK [address] RD
[2019-01-30] MEDS: amLODIPine 5 MG TAB PO SCH (17:17)
--- NOTE | 2019-01-30 18:00 | NUR ---
PATIENT IN NO DISTRESS. WILL CONTINUE TO MONITOR
--- NOTE | 2019-01-30 19:05 | NUR ---
GAVE BEDSIDE REPORT TO METAL ENGRAVER NURSE. PATIENT ENDORSED IN STABLE CONDITION
--- NOTE | 2019-01-30 19:35 | NUR ---
RECIEVED PT AAOX4 , NID , O2 SAT90'S , IV SITE INTACT , IV CANNULLA INTACT - POST HEMODIALYSIS , PLAN OF CARE DISCUSSED AND VERBALIZE UNDERSTANDING , ON SAFETY / FALL PRECAUTION PROTOCOL - CALL LIGHT WITHIN REACH - WILL CONT. TO MONITOR .
--- NOTE | 2019-01-30 19:48 | NUR ---
1929 SPUTUM SAMPLE UPTAINED AND SENT TO LAB
[2019-01-30 20:00] VITALS: BP 170/100
[2019-01-30] MEDS: MIRTAZAPINE 15 MG TAB PO SCH (20:33)
[2019-01-30] MEDS: PRAZOSIN 5 MG PO SCH (20:36)
--- NOTE | 2019-01-30 21:00 | NUR ---
REFUSED HEPARIN SQ.
[2019-01-31] VITALS: BP 155/100
--- NOTE | 2019-01-31 00:46 | NUR ---
REFER TO DR. DIA DUE TO SOB , S/E BY DR. DIA - WAITING FOR RUTHER ORDERS , LBP 180/100 STILL NO U.O UNTIL NOW.
[2019-01-31] MEDS ORDERED: hydrALAZINE 20 MG/ML VIAL IVP SCH (01:00)
--- NOTE | 2019-01-31 01:09 | NUR ---
HYDRALAZINE 10MGTIV GIVEN ORDERED - ON CLOSELY WATCH , CALL LIGHT WITHIN REACH.
--- NOTE | 2019-01-31 02:11 | NUR ---
BR RECHECK 153/87 - WILL CONT. TO MONITOR.
[2019-01-31 04:00] VITALS: BP 150/100
[2019-01-31] MEDS: MORPHINE SULFATE 2 MG/ML SYR IVP PRN ×4 (04:07→22:16)
[2019-01-31] MEDS: ONDANSETRON 4 MG/2 ML VIAL IM/IVP PRN ×3 (04:08→22:16)
[2019-01-31] MEDS: PIPERACILLIN/TAZOBACTAM 2.25 GM in DEXTROSE 5% 50 ML IV SCH ×3 (04:46→20:40)
--- NOTE | 2019-01-31 07:15 | NUR ---
RECEIVED PT FROM WILDLIFE BIOSTATION RESEARCH ECOLOGIST NURSE, PARDEEP, PT IS AWAKE AND SEATED ON THE BED AND USING HIS CP, PT HAS A RT SHUNT FOR DIALYSIS ACCESS, IV LINE ON THE LEFT FA G. 22 ON SALINE LOCK, PT DENIES PAIN AND NO SIGN OF DISTRESS NOTED. WILL MONITOR PT.
[2019-01-31 08:00] VITALS: BP 168/122
[2019-01-31] MEDS: SPIRONOLACTONE 25 MG TAB PO SCH (08:28)
[2019-01-31] MEDS: cloNIDine 0.1 MG TAB PO SCH ×3 (08:29→16:54)
[2019-01-31] MEDS: VIT-B COMP/VIT-C/FOLIC ACID 1 TAB PO SCH (08:29)
[2019-01-31] MEDS: DILTIAZEM 60 MG TAB PO SCH ×4 (08:30→20:40)
[2019-01-31] MEDS: MINOXIDIL 10 MG TAB PO SCH ×2 (08:31→21:26)
[2019-01-31] MEDS: PRAZOSIN 5 MG PO SCH ×2 (08:32→21:25)
--- NOTE | 2019-01-31 08:32 | NUR ---
PT IS AWAKE AND ORAL MEDICATIONS WERE GIVEN AND TOLERATED IT, WILL CONTINUE TO MONITOR PT.
[2019-01-31 12:00] VITALS: BP 157/100
--- NOTE | 2019-01-31 12:12 | NUR ---
IV ZOSYN WAS GIVEN TO PT NOW.
[2019-01-31] MEDS: CALCIUM ACETATE 667 MG TAB PO SCH ×2 (13:15→16:52)
--- NOTE | 2019-01-31 13:15 | NUR ---
ORAL AND BENADRYL IV PUSH WERE GIVEN TO PT NOW PRIOR TO DIALYSIS.
[2019-01-31] MEDS: diphenhydrAMINE 50 MG/ML VIAL IVP PRN ×2 (13:16→21:25)
--- NOTE | 2019-01-31 13:16 | NUR ---
DIALYSIS STARTED NOW.
[2019-01-31 14:16] LABS: BASOPHILS # (AUTO) 0.2 K/uL (0.00-0.22); BASOPHILS % (AUTO) 3.4 % (0.0-2.0); EOSINOPHILS # (AUTO) 0.3 K/uL (0-0.4); EOSINOPHILS % (AUTO) 5.2 % (0.0-4.0); HEMATOCRIT 23.3 % (36-52); HEMOGLOBIN 7.7 g/dL (12.0-18.0); LYMPHOCYTES # (AUTO) 0.7 K/uL (2.0-11.5); LYMPHOCYTES % (AUTO) 11.1 % (20.5-51.1); MEAN CORPUSCULAR HEMOGLOBIN 29 pg (27-31); MEAN CORPUSCULAR HGB CONC 33 g/dL (33-37); MEAN CORPUSCULAR VOLUME 89.3 fL (80-94); MONOCYTES # (AUTO) 0.1 K/uL (0.8-1.0); MONOCYTES % (AUTO) 1.8 % (1.7-9.3); NEUTROPHILS # (AUTO) 5.1 K/uL (1.8-7.7); NEUTROPHILS % (AUTO) 78.5 % (42.2-75.2); PLATELET COUNT (AUTO) 212 K/uL (140-450); RED BLOOD CELL COUNT(AUTO) 2.61 MIL/uL (4.20-6.10); RED CELL DISTRIBUTION WIDTH 15.1 % (11.6-13.7); WHITE BLOOD COUNT (AUTO) 6.5 K/uL (4.8-10.8)
[2019-01-31 14:30] LABS: ANION GAP 12.2 (8-16); CARBON DIOXIDE 30.2 mmol/L (21-32); POTASSIUM 3.4 mmol/L (3.5-5.1)
[2019-01-31 14:36] LABS: CREATININE 5.5 mg/dL (0.7-1.3)
[2019-01-31 16:00] VITALS: BP 155/93
--- NOTE | 2019-01-31 16:25 | NUR ---
DIALYSIS WAS FINISHED NOW AND OUTPUT IS 3L, BP IS 155/93, PULSE IS 96, O2 SATURATION IS 96% AND TEMPERSTURE IS 99. WILL MONITOR PT.
[2019-01-31] MEDS: amLODIPine 5 MG TAB PO SCH (16:52)
[2019-01-31 18:14] LABS: MAGNESIUM 1.8 mg/dL (1.8-2.4); PHOSPHORUS 4.5 mg/dL (2.5-4.9)
[2019-01-31] MEDS ORDERED: POTASSIUM CHLORIDE 10 MEQ TABER PO SCH (18:32)
--- NOTE | 2019-01-31 18:46 | NUR ---
K-DUR 20M3Q WAS GIVEN TO PT FOR K LEVEL OF 3.4.
--- NOTE | 2019-01-31 19:00 | NUR ---
ENDORSED PT TO PATIENT CARE DIRECTOR NURSEGAVINO FOR CONTINUITY OF CARE.
--- NOTE | 2019-01-31 19:05 | NUR ---
RECIEVED PT AAOX4, GCS 15, IV SITE INTACT. RR EVEN/UNLABORED. PT ON CELL PHONE AT THIS TIME SMILING AND TALKING. PLAN OF CARE DISCUSSED AND VERBALIZE UNDERSTANDING , ON SAFETY / FALL PRECAUTION PROTOCOL - CALL LIGHT WITHIN REACH - WILL CONT. TO MONITOR .
[2019-01-31 20:00] VITALS: BP 140/102
[2019-01-31] MEDS: ALBUTEROL SULFATE/IPRATROPIU 3 ML SOL IH PRN (20:09)
--- NOTE | 2019-01-31 20:19 | NUR ---
RECEIVED PATIENT ON ROOM AIR, PULSE OX SAT 98%. PATIENT STATES TO BE FEELING SOB. PRN HHN ADMINISTERED. TOLERATED TX WELL WITHOUT ADVERSE SIDE EFFECTS. PATIENT STATES TO FEEL IMPROVEMENT POST TX. NO ACUTE RESPIRATORY DISTRESS NOTED. WILL CONTINUE TO MONITOR.
--- NOTE | 2019-01-31 21:25 | NUR ---
PT STATES HE IS ITCHING AT THIS TIME AND, "I NEED MY BENADRYL."
[2019-01-31] MEDS: MIRTAZAPINE 15 MG TAB PO SCH (21:26)
--- NOTE | 2019-01-31 22:12 | NUR ---
PT STATES HE IS IN 9/10 PAIN AT THIS TIME, WILL MEDICATE PER ORDERS
[2019-02-01 01:08] VITALS: BP 155/95
[2019-02-01] MEDS: ALBUTEROL SULFATE/IPRATROPIU 3 ML SOL IH PRN (03:13)
[2019-02-01 04:09] VITALS: BP 165/102
[2019-02-01] MEDS: PIPERACILLIN/TAZOBACTAM 2.25 GM in DEXTROSE 5% 50 ML IV SCH ×3 (05:32→20:18)
[2019-02-01] MEDS: MORPHINE SULFATE 2 MG/ML SYR IVP PRN ×4 (05:46→23:07)
--- NOTE | 2019-02-01 07:17 | NUR ---
REPORT GIVEN TO LALITHA DUNCAN
--- NOTE | 2019-02-01 07:20 | NUR ---
RECEIVED REPORT FROM STUDENT TEACHER NURSE. PATIENT IS AWAKE, IN STABLE CONDITION.
[2019-02-01 08:00] VITALS: BP 195/112
[2019-02-01] MEDS: VIT-B COMP/VIT-C/FOLIC ACID 1 TAB PO SCH (08:44)
[2019-02-01] MEDS: cloNIDine 0.1 MG TAB PO SCH ×3 (08:45→17:00)
[2019-02-01] MEDS: CALCIUM ACETATE 667 MG TAB PO SCH ×3 (08:46→17:00)
[2019-02-01] MEDS: DILTIAZEM 60 MG TAB PO SCH ×4 (08:46→20:18)
[2019-02-01] MEDS: EPOETIN ALFA 10,000 UNITS/ML VIAL IV SCH (08:47)
[2019-02-01] MEDS: PRAZOSIN 5 MG PO SCH ×2 (08:48→20:19)
[2019-02-01] MEDS: MINOXIDIL 10 MG TAB PO SCH ×2 (08:49→20:19)
--- NOTE | 2019-02-01 08:57 | NUR ---
MORNING MEDS GIVEN, TOLERATED WELL. PATIENT REFUSED HEPARIN. PATIENT IS AMBULATORY. PATIENT COMPLAIN OF CHEST PAIN RADIATING TO HIS BACK, PATIENT REQUEST MORPHINE AND MORPHINE NOT DUE FOR ANOTHER HOUR WILL MEDICATE WHEN DUE. PATIENT IS SITTING UP EATING CEREAL, APPEARS COMFORTABLE, SPEAKS CLEARLY AND NO ACUTE DISTRESS.
[2019-02-01] MEDS: hydrALAZINE 20 MG/ML VIAL IVP PRN (10:55)
--- NOTE | 2019-02-01 11:09 | NUR ---
PATIENTS BP REASSESSED STILL ELEVATED. PRN HYDRALAZINE GIVEN IVP, MORPHINE GIVEN FOR PAIN IN THE CHEST AND BACK. DR ROBIN AT BEDSIDE.
[2019-02-01] MEDS ORDERED: SPIRONOLACTONE 25 MG TAB PO SCH (11:28)
[2019-02-01 12:00] VITALS: BP 185/104
--- NOTE | 2019-02-01 12:02 | NUR ---
PT TRANSFERRED TO MED SURGE STATUS, TELE BOX REMOVED AT THIS TIME
--- NOTE | 2019-02-01 12:42 | NUR ---
GOT CALL FROM NURSE THAT PT WANTS A BREATHING TX. CHECK ON PT , PT ON ROOM AIR WITH SPO2 OF 97%. CLEAR BREATH SOUNDS. PT SAID HIS THROAT WAS HURTING. EXPLAINED TO PT THAT BREATHING TX WILL NOT HELP WITH PAIN. PT ALSO SAID HIS RT ARM WAS HURTING. PERLA DOTY NOTIFIED. NO SOB OR DISTRESS NOTED. WILL CONTINUE TO MONITOR.
[2019-02-01] MEDS: hydrALAZINE 10 MG TAB PO SCH ×2 (12:47→17:00)
--- NOTE | 2019-02-01 12:56 | NUR ---
SCHEDULED MED GIVEN, PT CHAVA PO WELL, SCHEDULED ZOSYN STARTED, IV SITE WNL. PT WATCHING TV, SITTING UP AT SIDE OF BED, IN NO ACUTE DISTRESS. NO C/O PAIN.
[2019-02-01 16:00] VITALS: BP 174/111
--- NOTE | 2019-02-01 16:54 | NUR ---
PAIN MED GIVEN FOR PAIN AROUND CHEST WITH COUGHING, WILL CONTINUE TO MONITOR.
[2019-02-01] MEDS: amLODIPine 5 MG TAB PO SCH (17:00)
--- NOTE | 2019-02-01 18:05 | NUR ---
PT STATES HE WAS TOLD BY DR MARTINEZ HE WILL GET DIALYSIS TODAY, NO ORDER RECEIVED, WILL INQUIRE [facility]IDENTS REAGARDING HD TODAY.
--- NOTE | 2019-02-01 18:50 | NUR ---
DR MARTINEZ SPOKE TO DIALYSIS NURSE BETZY, NO DILAYSIS TODAY, WILL DO TOMORROW PER DR MARTINEZ, WILL NOTIFY PT WITH POC.
--- NOTE | 2019-02-01 19:23 | NUR ---
REPORT RECEIVED FROM AM NURSE AT BEDSIDE. PT IN STABLE CONDITION. AAOX4. INTRODUCED SELF TO PT. BOARD UPDATED. NO COMPLAINTS OF PAIN. NO SOB. AFEBRILE. PT IS AMBULATORY. IV SITE L FA 20G SL PATENT AND INTACT. SKIN WARM, DRY, AND INTACT WITH NO OPEN WOUNDS. BED LOCKED IN LOW POSITION. CALL RODRIGUEZ WITHIN REACH. SAFETY PRECAUTION IN PLACE. ALL NEEDS MET AT THIS TIME.
--- NOTE | 2019-02-01 20:18 | NUR ---
CARDIZEM, LONITEN, PRAZOSIN, AND REMERON GIVEN PO. JULIAN VERA. PT TOLERATING WELL. Addendum: 02/02/19 at 0009 by Justo Parsons RN ZOFRAN GIVEN IVP FOR NAUSEA.
[2019-02-01] MEDS: MIRTAZAPINE 15 MG TAB PO SCH (20:19)
[2019-02-01] MEDS: ONDANSETRON 4 MG/2 ML VIAL IM/IVP PRN (20:24)
--- NOTE | 2019-02-01 22:00 | NUR ---
PT AWAKE AND ALERT SITTING UP WATCHING TV. NO S/S OF DISTRESS NOTED. WILL CONTINUE TO MONITOR.
[2019-02-01] MEDS ORDERED: diphenhydrAMINE 50 MG/ML VIAL IVP SCH (22:55)
--- NOTE | 2019-02-01 23:07 | NUR ---
MORPHINE GIVEN FOR 7/10 PAIN. BENADRYL GIVEN FOR ITCHINESS. PT TOLERATED WELL.
[2019-02-02] VITALS: BP 196/121
--- NOTE | 2019-02-02 00:45 | NUR ---
PT AWAKE AND ALERT WATCHING MOVIES ON HIS PHONE. NO S/S OF DISTRESS NOTED. WILL CONTINUE TO MONITOR.
[2019-02-02] MEDS: hydrALAZINE 20 MG/ML VIAL IVP PRN ×2 (02:07→11:49)
--- NOTE | 2019-02-02 02:52 | NUR ---
PT SLEEPING COMFORTABLY BUT AROUSABLE. NO S/S OF DISTRESS NOTED. NO COMPLAINTS OF PAIN. NO SOB. AFEBRILE. WILL CONTINUE TO MONITOR.
[2019-02-02] MEDS: PIPERACILLIN/TAZOBACTAM 2.25 GM in DEXTROSE 5% 50 ML IV SCH ×2 (04:00→20:47)
--- NOTE | 2019-02-02 04:00 | NUR ---
JULIAN HUNG AND RUNNING. PT TOLERATING WELL.
--- NOTE | 2019-02-02 05:30 | NUR ---
PT REFUSED BLOOD DRAW.
--- NOTE | 2019-02-02 06:50 | NUR ---
PT SLEEPING COMFORTABLY BUT AROUSABLE. NO S/S OF DISTRESS NOTED. PT IN STABLE CONDITION.
--- NOTE | 2019-02-02 07:11 | NUR ---
RECEIVED ENDORSEMENT FROM FISH WORM GROWER NURSE. PATIENT IS AAOX4, MAURITIAN SPEAKING. RESPIRATIONS ARE EVEN AND UNLABORED ON ROOM AIR. PATIENT DENIES ANY PAIN AT THIS TIME. LEFT FA 20G IV INTACT AND SL. RIGHT UPPER ARM AV SHUNT NOTED. PLAN OF CARE WAS REVIEWED WITH PATIENT, PATIENT VERBALIZED UNDERSTANDING. SAFETY MEASURES IN PLACE, CALL LIGHT WITHIN REACH.
[2019-02-02 08:00] VITALS: BP 192/116
[2019-02-02] MEDS: CALCIUM ACETATE 667 MG TAB PO SCH ×3 (08:37→17:26)
[2019-02-02] MEDS: VIT-B COMP/VIT-C/FOLIC ACID 1 TAB PO SCH (08:37)
[2019-02-02] MEDS: MINOXIDIL 10 MG TAB PO SCH ×2 (08:37→20:48)
[2019-02-02] MEDS: DILTIAZEM 60 MG TAB PO SCH ×4 (08:38→20:48)
[2019-02-02] MEDS: cloNIDine 0.1 MG TAB PO SCH ×3 (08:38→17:27)
[2019-02-02] MEDS: SPIRONOLACTONE 25 MG TAB PO SCH (08:39)
[2019-02-02] MEDS: hydrALAZINE 10 MG TAB PO SCH (08:39)
[2019-02-02] MEDS: PRAZOSIN 5 MG PO SCH ×2 (08:39→20:48)
--- NOTE | 2019-02-02 08:39 | NUR ---
ADMINISTERED SCHEDULED MEDICATIONS. PATIENT TOLERATED WELL. NO OTHER NEEDS AT THIS TIME, WILL CONTINUE TO MONITOR.
[2019-02-02] MEDS: MORPHINE SULFATE 2 MG/ML SYR IVP PRN ×3 (08:57→21:45)
--- NOTE | 2019-02-02 10:15 | NUR ---
OBTAINED VERBAL ORDER FOR HD FROM DR. WATERS AND BP MEDICATION ORDERS. DIALYSIS NURSE AT BEDSIDE. NO OTHER NEEDS AT THIS TIME.
[2019-02-02] MEDS ORDERED: METH4TAB1 PO (11:30)
--- NOTE | 2019-02-02 11:49 | NUR ---
ADMINISTERED HYDRALAZINE IVP PRN FOR BP ABOVE PARAMETERS. PER DR. LIRA HOLD SCHEDULED BP MEDS AND GIVE IV PRN INSTEAD. ADMINISTERED OTHER SCHEDULED MEDICATIONS. PATIENT TOLERATED WELL. NO OTHER NEEDS AT THIS TIME.
[2019-02-02] MEDS: hydrALAZINE 25 MG TAB PO SCH ×2 (12:40→17:27)
--- NOTE | 2019-02-02 12:40 | NUR ---
PER DR. LOBITO BLACKMAN, TO ADMINISTER SCHEDULED PO BP MEDICATIONS. PATIENT'S BP ABOVE PARAMETERS. ADMINISTERED SCHEDULED MEDICATIONS. PATIENT TOLERATED WELL. NO OTHER NEEDS AT THIS TIME, WILL CONTINUE TO MONITOR.
--- NOTE | 2019-02-02 13:40 | NUR ---
HD IS FINISHED, 4L WAS TAKEN OUT. PATIENT IS STABLE AT THIS TIME. NO OTHER NEEDS AT THIS TIME, WILL CONTINUE TO MONITOR.
--- NOTE | 2019-02-02 13:50 | NUR ---
PER LAB, PATIENT REFUSING BLOOD DRAW. DR. ROBIN IS AWARE. Addendum: 02/02/19 at 1523 by Suzi Cote RN PER DR. ROBIN PATIENT NOT TO BE DISCHARGED TODAY.
[2019-02-02] MEDS: diphenhydrAMINE 50 MG/ML VIAL IVP PRN (14:53)
--- NOTE | 2019-02-02 14:53 | NUR ---
ADMINISTERED BENADRYL IVP PRN FOR ITCHING. PATIENT TOLERATED WELL. NO OTHER NEEDS AT THIS TIME.
--- NOTE | 2019-02-02 15:21 | NUR ---
PATIENT SITTING IN BED WATCHING HIS PHONE. NO OTHER NEEDS AT THIS TIME, WILL CONTINUE TO MONITOR.
[2019-02-02 16:00] VITALS: BP 177/114
[2019-02-02] MEDS: amLODIPine 5 MG TAB PO SCH (17:26)
--- NOTE | 2019-02-02 17:30 | NUR ---
ADMINISTERED SCHEDULED MEDICATION. PATIENT TOLERATED WELL. NO OTHER NEEDS AT THIS TIME.
--- NOTE | 2019-02-02 19:22 | NUR ---
ENDORSED TO ARTICULATION OFFICER NURSE JNE FOR CONTINUITY OF CARE. PATIENT IS STABLE AT THIS TIME.
--- NOTE | 2019-02-02 19:23 | NUR ---
RECEIVED BEDSIDE REPORT FROM DAY RN. PT IS AAOX4. ON ROOM AIR RESPIRATIONS ARE EQUAL AND UNLABORED. SKIN INTACT. PT IS AMBULATORY WITHOUT ASSIST. IV ON L FA 20G SL. AV SHUNT ON THANIA. JUST GOT DIALYSIS TODAY 4L OUTPUT. [facility] PT REPORT LOW APPETITE. POC DISCUSSED WITH PT. ALL QUESTIONS AND CONCERNS ANSWERED. CALL LIGHT IS WITHIN REACH. WILL CONTINUE TO MONITOR.
--- NOTE | 2019-02-02 20:47 | NUR ---
DENZEL MEDICATIONS WERE GIVEN. PT TOLERATED WELL. CALL LIGHT IS WITHIN REACH. WILL CONTINUE TO MONITOR.
[2019-02-02] MEDS: MIRTAZAPINE 15 MG TAB PO SCH (20:51)
--- NOTE | 2019-02-02 21:45 | NUR ---
ADMINISTERED MORPHINE FOR 8/10 PAIN. CALL LIGHT IS WITHIN REACH. WILL CONTINUE TO MONITOR.
--- NOTE | 2019-02-02 22:30 | NUR ---
PATIENT IS RESTING COMFORTABLY IN BED. WATCHING VIDEOS ON CELL PHONE. DENIES ANY DISCOMFORT. CALL LIGHT IS WITHIN REACH. WILL CONTINUE TO MONITOR.
[2019-02-03] VITALS: BP 204/135
[2019-02-03] MEDS: diphenhydrAMINE 50 MG/ML VIAL IVP PRN ×3 (00:08→23:34)
[2019-02-03] MEDS: hydrALAZINE 20 MG/ML VIAL IVP PRN ×2 (00:09→23:26)
--- NOTE | 2019-02-03 00:09 | NUR ---
PRN HYDRALAZINE GIVEN FOR B/P 204/135 HR 112. ADMINISTERED BENADRYL PT TOLERATED WELL. CALL LIGHT IS WITHIN REACH. WILL CONTINUE TO MONITOR.
[2019-02-03 01:21] VITALS: BP 176/112
--- NOTE | 2019-02-03 01:22 | NUR ---
B/P TRENDING DOWN: 176/112 HR 108. PAGED RT PER REQUEST PT SAT 100% RA RR 17 HAS SOME WHEEZING. CALL LIGHT IS WITHIN REACH. WILL CONTINUE TO MONITOR.
[2019-02-03] MEDS: ALBUTEROL SULFATE/IPRATROPIU 3 ML SOL IH PRN (01:26)
[2019-02-03] MEDS: MORPHINE SULFATE 2 MG/ML SYR IVP PRN ×3 (03:25→13:29)
[2019-02-03] MEDS: LORazepam 0.5 MG TAB PO PRN (03:29)
--- NOTE | 2019-02-03 03:29 | NUR ---
ADMINISTERED MORPHINE FOR PAIN 12/10 AND PO ATIVAN FOR ANXIETY. PT STATES HE HAS NOT BEEN ABLE TO SLEEP SINCE ADMISSION ON WEDNESDAY. PER PT STATES DOCTORS SAID ITS CONTRIBUTING TO ELEVATED B/P. ALL NEEDS MET AT THIS TIME. SAFETY MEASURES ARE IN PLACE. WILL CONTINUE TO MONITOR.
[2019-02-03] MEDS: PIPERACILLIN/TAZOBACTAM 2.25 GM in DEXTROSE 5% 50 ML IV SCH ×3 (04:03→20:39)
--- NOTE | 2019-02-03 06:49 | NUR ---
PT IS SLEEPING COMFORTABLY IN BED. CHEST RISE AND FALL. NO S/S OF DISTRESS. CALL LIGHT IS WITHIN REACH. WILL CONTINUE TO MONITOR.
--- NOTE | 2019-02-03 07:24 | NUR ---
GAVE BEDSIDE REPORT. PT ENDORSED IN STABLE CONDITION.
--- NOTE | 2019-02-03 07:25 | NUR ---
RECEIVED ENDORSEMENT FROM CARAMEL COLORING OPERATOR NURSE. PATIENT IS AAOX4, SOLOMON ISLANDER SPEAKING. RESPIRATIONS ARE EVEN AND UNLABORED ON ROOM AIR. PATIENT DENIES ANY PAIN AT THIS TIME. LEFT FA 20G IV INTACT AND SL. RIGHT UPPER ARM AV SHUNT NOTED. PLAN OF CARE WAS REVIEWED WITH PATIENT, PATIENT VERBALIZED UNDERSTANDING. SAFETY MEASURES IN PLACE, CALL LIGHT WITHIN REACH.
[2019-02-03 08:00] VITALS: BP 208/139
[2019-02-03] MEDS: cloNIDine 0.1 MG TAB PO SCH ×3 (08:18→17:41)
[2019-02-03] MEDS: DILTIAZEM 60 MG TAB PO SCH ×4 (08:18→20:37)
[2019-02-03] MEDS: CALCIUM ACETATE 667 MG TAB PO SCH ×3 (08:19→17:39)
[2019-02-03] MEDS: hydrALAZINE 25 MG TAB PO SCH ×3 (08:20→17:42)
[2019-02-03] MEDS: VIT-B COMP/VIT-C/FOLIC ACID 1 TAB PO SCH (08:20)
[2019-02-03] MEDS: SPIRONOLACTONE 25 MG TAB PO SCH (08:20)
[2019-02-03] MEDS: MINOXIDIL 10 MG TAB PO SCH ×2 (08:21→20:38)
[2019-02-03] MEDS: PRAZOSIN 5 MG PO SCH ×2 (08:22→21:39)
[2019-02-03] MEDS: EPOETIN ALFA 10,000 UNITS/ML VIAL IV SCH ×2 (08:23→08:26)
--- NOTE | 2019-02-03 08:26 | NUR ---
ADMINISTERED SCHEDULED MEDICATIONS. PATIENT TOLERATED WELL. NO OTHER NEEDS AT THIS TIME, WILL CONTINUE TO MONITOR.
[2019-02-03] MEDS ORDERED: NIFEdipine 30 MG TABER PO SCH (09:19)
[2019-02-03] MEDS ORDERED: CARVEDILOL 6.25 MG TAB PO SCH (09:19)
--- NOTE | 2019-02-03 09:45 | NUR ---
ADMINISTERED SCHEDULED MEDICATIONS. PATIENT TOLERATED WELL. NO OTHER NEEDS AT THIS TIME, WILL CONTINUE TO MONITOR.
[2019-02-03] MEDS ORDERED: LORazepam 0.5 MG TAB PO PRN (10:10)
[2019-02-03] MEDS: ONDANSETRON 4 MG/2 ML VIAL IM/IVP PRN ×2 (11:02→21:51)
--- NOTE | 2019-02-03 11:02 | NUR ---
ADMINISTERED ZOFRAN IVP PRN FOR NAUSEA, ADMINISTERED BENADRYL FOR ITCHING. NO OTHER NEEDS AT THIS TIME.
--- NOTE | 2019-02-03 13:41 | NUR ---
ADMINISTERED SCHEDULED MEDICATIONS. PATIENT TOLERATED WELL. NO OTHER NEEDS AT THIS TIME.
--- NOTE | 2019-02-03 13:56 | NUR ---
02/03/19 RD FOLLOW UP COMPLETED PLEASE REFER TO NUTRITION ASSESSMENT UNDER CARE ACTIVITY FOR ESTIMATED NUTRITIONAL NEEDS. 1. CONTINUE REGULAR DIET TOLERATED 2. CONTINUE NEPRO BID 3. RD PROVIDED NUTRITION EDUCATION FOR LOW SODIUM DIET 4. RD TO FOLLOW-UP 3-5 DAYS, MODERATE RISK COOPER LEBLANC, RD
[2019-02-03] MEDS ORDERED: MORPHINE SULFATE 4 MG/ML SYR IVP SCH (15:00)
--- NOTE | 2019-02-03 15:02 | NUR ---
PATIENT SITTING IN BED. C/O OF SEVERE PAIN. DR. ROBIN MADE AWARE. TO SEE PATIENT. NO OTHER NEEDS AT THIS TIME.
[2019-02-03 16:00] VITALS: BP 195/125
[2019-02-03] MEDS ORDERED: HYDROmorphone 1 MG/ML AMP IVP PRN (17:30)
--- NOTE | 2019-02-03 17:42 | NUR ---
ADMINISTERED SCHEDULED MEDICATIONS. PATIENT TOLERATED WELL. PATIENT STATED HE COUGHED UP BLOOD. WILL BE MADE AWARE. NO OTHER NEEDS AT THIS TIME.
--- NOTE | 2019-02-03 19:40 | NUR ---
RECIEVED PT AAOX4 , NID - O2 SAT 95 TO 94 , IV SITE INTACT AND PATENT , WITH IV SHUNT AT THE RIGHT UPPER ARM , SITTING ON THE BED WHILE TALKING OVER THE PHONE , NO C/O PAIN AT THIS TIME , WITH EPISODE OF HIGH BP AM NOD REPORTED TO ME, PLAN OF CARE DISCUSSED AND VERBALIZE UNDERSTANDING , NO SAFETY / FALL PRECAUTION PROTOCOL -CALL LIGHT WITHIN REACH - REMINDS PRESS THE CALL LIGHT NEEDED FOR ASSISTANCE. WILL CONT. TO MONITOR.
--- NOTE | 2019-02-03 19:40 | NUR ---
ENDORSED TO SOFTWARE PACKAGING ENGINEER FOR CONTINUITY OF CARE. PATIENT IS STABLE AT THIS TIME.
[2019-02-03] MEDS: CARVEDILOL 6.25 MG TAB PO SCH (20:36)
[2019-02-03] MEDS: MIRTAZAPINE 15 MG TAB PO SCH (21:40)
[2019-02-03] MEDS: MORPHINE SULFATE 4 MG/ML SYR IVP PRN (21:51)
[2019-02-04] VITALS: BP 178/102
[2019-02-04] MEDS: ONDANSETRON 4 MG/2 ML VIAL IM/IVP PRN ×2 (04:01→12:21)
[2019-02-04] MEDS: hydrALAZINE 25 MG TAB PO SCH ×3 (04:12→16:09)
--- NOTE | 2019-02-04 04:12 | NUR ---
REFERRED TO STEPHENIE - DUE TO STILL BP SBP 180 - ORAL HYDRALAZINE GIVEN NOW INSTEAD OF 8AM DUE.- 3X TRIED IV RE INSERTION - BUT STILL ALL FAILED - STEPHENIE AND CHARGE NURSE INFORMED.
[2019-02-04] MEDS ORDERED: ONDANSETRON 4 MG TAB PO ONE (04:50)
[2019-02-04] MEDS: PIPERACILLIN/TAZOBACTAM 2.25 GM in DEXTROSE 5% 50 ML IV SCH ×4 (05:00→20:38)
[2019-02-04] MEDS ORDERED: HYDROmorphone 2 MG TAB PO ONE (05:30)
[2019-02-04] MEDS ORDERED: HYDROcodone/APAP 7.5/325 MG 1 TAB PO PRN (05:50)
--- NOTE | 2019-02-04 05:59 | NUR ---
PT. REFUSED - PAIN MEDICATION - INFORMED STEPHENIE AND CHARGE NURSE.
--- NOTE | 2019-02-04 06:00 | NUR ---
NO IV ACESS - STEPHENIE AND CHARGE NURSE INFORMED.
--- NOTE | 2019-02-04 07:20 | NUR ---
ENDORSED TO AM SHIFT - STILL WITH HIGH BLOOD PRESSURE - STEPHENIE INFORMED NO IV ACCESS -STEPHENIE ON ROUNDS DURING ENDORSEMENT.
--- NOTE | 2019-02-04 07:25 | NUR ---
RECEIVED PT FROM NIGHT NURSE IN STABLE CONDITION. PT AAO X4, DROWSY, SITTING IN BED. SKIN INTACT. NO IV IN PLACE AT THE TIME OF BEDSIDE REPORT WITH PLANS OF INSERTING PICC LINE. RESPIRATIONS EVEN AND UNLABORED ON ROOM AIR. SAFETY MEASURES IN PLACE. BED IN LOW POSITION. CALL LIGHT WITHIN REACH. WILL CONTINUE TO MONITOR.
[2019-02-04 08:00] VITALS: BP 177/108
[2019-02-04] MEDS ORDERED: NIFEdipine 30 MG TABER PO SCH (09:00)
[2019-02-04] MEDS: ALBUTEROL SULFATE/IPRATROPIU 3 ML SOL IH PRN (09:06)
[2019-02-04] MEDS: DILTIAZEM 60 MG TAB PO SCH ×2 (09:24→12:23)
[2019-02-04] MEDS: CARVEDILOL 6.25 MG TAB PO SCH ×2 (09:24→20:34)
[2019-02-04] MEDS: CALCIUM ACETATE 667 MG TAB PO SCH ×3 (09:24→16:09)
[2019-02-04] MEDS: VIT-B COMP/VIT-C/FOLIC ACID 1 TAB PO SCH (09:25)
[2019-02-04] MEDS: cloNIDine 0.1 MG TAB PO SCH ×3 (09:26→16:09)
[2019-02-04] MEDS: SPIRONOLACTONE 25 MG TAB PO SCH (09:26)
[2019-02-04] MEDS: PRAZOSIN 5 MG PO SCH ×2 (09:30→20:37)
[2019-02-04] MEDS: MINOXIDIL 10 MG TAB PO SCH ×2 (09:39→20:36)
--- NOTE | 2019-02-04 09:52 | NUR ---
MEDICATIONS ADMINISTERED PER ORDER. PT TOLERATED WELL, NO DISTRESS NOTED. WILL CONTINUE TO MONITOR.
--- NOTE | 2019-02-04 10:52 | NUR ---
PICC LINE NURSERAMYA AT BEDSIDE TO INSERT PICC LINE. TIMEOUT PROCEDURE DONE. WILL CONTINUE TO MONITOR.
[2019-02-04] MEDS: MORPHINE SULFATE 4 MG/ML SYR IVP PRN ×2 (12:21→18:46)
--- NOTE | 2019-02-04 12:22 | NUR ---
GAVE PT PRN MORPHINE FOR PAIN. WILL CONTINUE TO ASSESS PAIN ACCORDING TO PROTOCOL
[2019-02-04] MEDS: diphenhydrAMINE 50 MG/ML VIAL IVP PRN ×2 (13:29→22:47)
--- NOTE | 2019-02-04 13:41 | NUR ---
ATTEMPTED TO DO EKG PT WHO IS RECEIVING DIALYSIS AT THIS TIME STATES TO DO PROCEDURE AT A LATER TIME.
[2019-02-04 16:00] VITALS: BP 168/117
--- NOTE | 2019-02-04 16:00 | NUR ---
PT COMPLETED HEMODIALYSIS. TOLERATED WELL. 3 L OUTPUT.
--- NOTE | 2019-02-04 16:12 | NUR ---
MEDICATIONS ADMINISTERED PER ORDER. PT TOLERATED WELL, NO DISTRESS NOTED. WILL CONTINUE TO MONITOR
--- NOTE | 2019-02-04 18:45 | NUR ---
GAVE MORPHINE PRN FOR PAIN. PT TOLERATED WELL. WILL CONTINUE TO MONITOR
[2019-02-04] MEDS: hydrALAZINE 20 MG/ML VIAL IVP PRN (18:52)
--- NOTE | 2019-02-04 19:20 | NUR ---
GAVE REPORT TO NIGHT NURSE FOR CONTINUITY OF CARE. PT IN STABLE CONDITION.
--- NOTE | 2019-02-04 19:29 | NUR ---
RECEIVED BEDSIDE REPORT FROM DAY SHIFT NURSE. PATIENT IS AWAKE, ALERT, AND COOPERATIVE. RESPIRATION EVEN UNLABORED ON ROOM AIR. NO DISTRESS NOTED. SKIN IS WARM AND DRY. RIGHT ARM AV SHUNT NOTED. LEFT UPPER ARM PICC LINE NOTED. PLAN OF CARE WAS DISCUSSED. ALL SAFETY MEASURES IN PLACE. BED IS AT LOW POSITION. CALL LIGHT WITHIN REACH AND VERBALIZES ITS USE. WILL CONTINUE TO MONITOR.
[2019-02-04 20:00] VITALS: BP 190/100
--- NOTE | 2019-02-04 20:00 | NUR ---
INITIAL ASSESSMENT DONE. VITALS WERE TAKEN. PATIENT BP 190/100. PATIENT JUST RECEIVED HYDRAZALINE AN HOUR AGO. DR LONDONO IS AWARE OF THE SITUATION SHE ORDER TO CONTINUE SCHEDULED MEDS AND RECHECK AGAIN LATER. WILL CONTINUE TO MONITOR.
[2019-02-04] MEDS: MIRTAZAPINE 15 MG TAB PO SCH (20:33)
[2019-02-04] MEDS: NIFEdipine 30 MG TABER PO SCH (20:35)
--- NOTE | 2019-02-04 21:00 | NUR ---
ALL SCHEDULED MEDS WERE GIVEN PER ORDER. NO ASE NOTED. CALL LIGHT WITHIN REACH. WILL CONTINUE TO MONITOR.
--- NOTE | 2019-02-04 22:54 | NUR ---
PATIENT COMPLAINED OF ITCHINESS ALL OVER THE BODY. PRN BENADRYL GIVEN PER ORDER. WILL CONTINUE TO MONITOR
[2019-02-05] VITALS: BP 204/111
--- NOTE | 2019-02-05 | NUR ---
VITALS WERE TAKEN. PATIENT BP IS HIGH 204/111. NOTIFIED DR. LONDONO. CALL LIGHT WITHIN REACH. WILL CONTINUE TO MONITOR.
[2019-02-05] MEDS: MORPHINE SULFATE 4 MG/ML SYR IVP PRN ×4 (00:59→22:45)
--- NOTE | 2019-02-05 00:59 | NUR ---
PATIENT COMPLAINED OF CHEST PAIN 10/10 RADIATING TO THE BACK. PRN PAIN MED ADMINISTER PER ORDER. WILL CONTINUE TO MONITOR.
[2019-02-05] MEDS ORDERED: LABETALOL 100 MG/20 ML VIAL IV SCH (01:00)
[2019-02-05] MEDS ORDERED: LABETALOL 100 MG/20 ML VIAL ONE (01:04)
--- NOTE | 2019-02-05 01:15 | NUR ---
ADMINISTERED LABETALOL 20MG(4ML) IVP PER DR. LONDONO'S ORDER FOR PATIENT BP. WILL MONITOR ITS EFFECTIVENESS.
--- NOTE | 2019-02-05 02:10 | NUR ---
REASSESSED BP 181/[address] LONDONO ORDER TO GIVE PRN HYDRALAZINE.
[2019-02-05] MEDS: hydrALAZINE 20 MG/ML VIAL IVP PRN ×2 (02:17→13:07)
[2019-02-05 04:00] VITALS: BP 171/98
--- NOTE | 2019-02-05 04:00 | NUR ---
VITALS WERE TAKEN. PATIENT IN STABLE CONDITION. NO DISTRESS NOTED. WILL CONTINUE TO MONITOR.
[2019-02-05] MEDS: PIPERACILLIN/TAZOBACTAM 2.25 GM in DEXTROSE 5% 50 ML IV SCH ×3 (04:25→20:47)
--- NOTE | 2019-02-05 07:12 | NUR ---
ENDORSED PATIENT TO DAY SHIFT NURSE FOR CONTINUITY OF CARE. PATIENT IN STABLE CONDITION,
--- NOTE | 2019-02-05 07:25 | NUR ---
RECEIVED PT FROM NIGHT NURSE. PT IN STABLE CONDITION. SLEEPING, BUT AROUSABLE TO SPEECH, AAO X4. PT DENIES PAIN AND NO DISTRESS IS NOTED. MEDIAL LINE IN PLACE LEFT UA DOUBLE LUMEN. RESPIRATIONS EVEN AND UNLABORED ON O2 NC 2L. SKIN INTACT. BED IN LOW POSITION. SAFETY MEASURES IN PLACE. CALL LIGHT WITHIN REACH. WILL CONTINUE TO MONITOR.
[2019-02-05 08:00] VITALS: BP 177/118
[2019-02-05] MEDS: NIFEdipine 30 MG TABER PO SCH ×2 (08:17→20:48)
[2019-02-05] MEDS: CALCIUM ACETATE 667 MG TAB PO SCH ×3 (08:17→16:15)
[2019-02-05] MEDS: CARVEDILOL 6.25 MG TAB PO SCH ×2 (08:17→20:48)
[2019-02-05] MEDS: hydrALAZINE 25 MG TAB PO SCH ×3 (08:18→16:14)
[2019-02-05] MEDS: SPIRONOLACTONE 25 MG TAB PO SCH (08:19)
[2019-02-05] MEDS: cloNIDine 0.1 MG TAB PO SCH ×3 (08:19→16:14)
[2019-02-05] MEDS: VIT-B COMP/VIT-C/FOLIC ACID 1 TAB PO SCH (08:19)
[2019-02-05] MEDS: MINOXIDIL 10 MG TAB PO SCH ×2 (08:20→20:49)
[2019-02-05] MEDS: PRAZOSIN 5 MG PO SCH ×2 (08:20→20:52)
[2019-02-05] MEDS: ONDANSETRON 4 MG/2 ML VIAL IM/IVP PRN ×2 (08:32→22:45)
--- NOTE | 2019-02-05 08:52 | NUR ---
MEDICATIONS ADMINISTERED PER ORDER. PT TOLERATED WELL. WILL CONTINUE TO MONITOR.
[2019-02-05] MEDS: diphenhydrAMINE 50 MG/ML VIAL IVP PRN (10:17)
--- NOTE | 2019-02-05 10:25 | NUR ---
ADMINISTERED PRN BENADRYL. PT TOLERATED WELL. WILL CONTINUE TO MONITOR.
[2019-02-05 12:00] VITALS: BP 208/173
--- NOTE | 2019-02-05 12:30 | NUR ---
PATIENT SITTING IN BED ON HIS PHONE. NO DISTRESS NOTED. CONDITION UNCHANGED. WILL CONTINUE TO MONITOR.
[2019-02-05] MEDS ORDERED: VALSARTAN 80 MG TAB PO SCH (15:00)
--- NOTE | 2019-02-05 15:00 | NUR ---
PATIENT SITTING IN BED WATCHING VIDEOS ON HIS PHONE. NO DISTRESS NOTED. CONDITION UNCHANGED. WILL CONTINUE TO MONITOR.
[2019-02-05] MEDS ORDERED: LORazepam 2 MG/ML VIAL IM/IVP SCH (15:45)
[2019-02-05 16:00] VITALS: BP 190/110
--- NOTE | 2019-02-05 17:00 | NUR ---
PATIENT SITTING ON FLOOR, SAID HE FEELS COMFORTABLE THERE AT THIS TIME. PATIENT DID NOT FALL. FAMILY MEMBER AT BEDSIDE. CONDITION UNCHANGED. WILL CONTINUE TO MONITOR.
--- NOTE | 2019-02-05 19:25 | NUR ---
PT HANDED OFF TO NIGHT NURSE IN STABLE CONDITION FOR CONTINUITY OF CARE.
[2019-02-05 20:00] VITALS: BP 202/131
--- NOTE | 2019-02-05 20:00 | NUR ---
ASSUMED CARE. RECEIVED ALERT,ORIENTED,WATCHING VIDEO ON HIS CELLULAR PHONE. AFEBRILE, NOT IN ACUTE DISTRESS. NO PAIN OR DISCOMFORT NOTED AT THIS TIME. WITH MIDLINE CATHETER TO THE LEFT UPPER ARM AND AV SHUNT TO THE RIGHT UPPER ARM INTACT. SSQ8=568% ON 6 LPM O2 VIA NC. SINUS TACH.AT 100-110'S/MINUTE ON THE MONITOR. BP VERY ELAVTED AT 202/131. WILL GIVE HS MEDICATIONS. WILL CLOSELY MONITOR.
[2019-02-05] MEDS: MIRTAZAPINE 15 MG TAB PO SCH (20:49)
--- NOTE | 2019-02-05 20:49 | NUR ---
DUE MEDICATIONS GIVEN SCHEDULED.
--- NOTE | 2019-02-05 22:45 | NUR ---
COMPLAINED OF CHEST PAIN AND NAUSEA. MORPHINE 4 MG IVP AND ZOFRAN 4 MG IVP GIVEN ORDERED.
[2019-02-06] VITALS (35 sets, daily range): BP systolic 143–237; BP diastolic 83–175
--- NOTE | 2019-02-06 | NUR ---
AWAKE, NOT IN ANY KIND OF DISTRESS. NO PAIN NOTED BUT COMPLAINED OF GENERALIZED ITCHING. BP STILL ELEVATED AT 198/117. WILL MEDICATE. WILL CONTINUE TO MONITOR. NEEDS ATTENDED.
[2019-02-06] MEDS: diphenhydrAMINE 50 MG/ML VIAL IVP PRN ×3 (00:45→23:57)
--- NOTE | 2019-02-06 00:45 | NUR ---
HYDRALAZINE 5 MG IVP AND BENADRYL 25 MG IVP GIVEN ORDERED FOR ELEVATED BP AND ITCHING RESPECTIVELY.
[2019-02-06] MEDS: hydrALAZINE 20 MG/ML VIAL IVP PRN ×3 (00:46→23:21)
--- NOTE | 2019-02-06 02:25 | NUR ---
BP BETTER BUT STILL ELEVATED AT 188/113. RESIDENT ALUMNI RELATIONS COORDINATOR MADE AWARE. NO FURTHER ORDER GIVEN.
--- NOTE | 2019-02-06 04:00 | NUR ---
AO=[id number]/123. RESIDENT LAST PUTTER AWAY AT BEDSIDE. AWARE OF BP. SHE SAID HYDRALAZINE MAY BE GIVEN EARLY. OTHERWISE PT.ASYMPTOMATIC.
[2019-02-06] MEDS: PIPERACILLIN/TAZOBACTAM 2.25 GM in DEXTROSE 5% 50 ML IV SCH ×3 (04:26→21:12)
--- NOTE | 2019-02-06 04:26 | NUR ---
ANOTHER DOSE OF HYDRALAZINE 5 MG IVP GIVEN ORDERED. WILL CLOSELY MONITOR BP.
[2019-02-06] MEDS: MORPHINE SULFATE 4 MG/ML SYR IVP PRN ×3 (05:27→16:15)
--- NOTE | 2019-02-06 05:27 | NUR ---
AGAIN COMPLAINED OF PAIN. MORPHINE 4 MG IVP GIVEN ORDERED.
--- NOTE | 2019-02-06 06:43 | NUR ---
NAN FROM THE LAB CALLED AND SAID PT. REFUSED BLOOD DRAW. WILL ENDORSE TO AM SHIFT.
--- NOTE | 2019-02-06 07:00 | NUR ---
RECEIVED REPORT FROM QUALITY REP NURSE. PATIENT IS SITTING UP IN BED. A&O X4, ON ROOM AIR. PT HAS A MIDLINE TO LEFT UPPER ARM & AN AV SHUNT TO RIGHT UPPER ARM. PT IS AMBULATORY, SKIN INTACT, ON TELE. WAS MADE AWARE PT REFUSED AM BLOOD DRAW AND HAS BEEN REFUSING. DR MATTHEWS. WILL CONTINUE WITH PLAN OF CARE.
--- NOTE | 2019-02-06 07:25 | NUR ---
ENDORSED CARE TO IRENA DUNCAN.
[2019-02-06] MEDS: EPOETIN ALFA 10,000 UNITS/ML VIAL IV SCH (08:20)
[2019-02-06] MEDS: VALSARTAN 80 MG TAB PO SCH (08:22)
[2019-02-06] MEDS: NIFEdipine 30 MG TABER PO SCH (08:23)
[2019-02-06] MEDS: hydrALAZINE 25 MG TAB PO SCH ×3 (08:24→17:28)
[2019-02-06] MEDS: VIT-B COMP/VIT-C/FOLIC ACID 1 TAB PO SCH (08:24)
[2019-02-06] MEDS: CARVEDILOL 6.25 MG TAB PO SCH (08:24)
[2019-02-06] MEDS: cloNIDine 0.1 MG TAB PO SCH ×4 (08:25→17:29)
[2019-02-06] MEDS: SPIRONOLACTONE 25 MG TAB PO SCH (08:25)
[2019-02-06] MEDS: CALCIUM ACETATE 667 MG TAB PO SCH ×3 (08:25→17:07)
[2019-02-06] MEDS: MINOXIDIL 10 MG TAB PO SCH ×2 (08:26→21:39)
[2019-02-06] MEDS: PRAZOSIN 5 MG PO SCH ×2 (08:29→21:12)
--- NOTE | 2019-02-06 09:00 | NUR ---
ADMINISTERED MORNING MEDICATION TO PATIENT. BP THIS MORNING WAS 214/131. PATIENT RECEIVED ZOFRAN FOR NAUSEA. WILL CONTINUE TO MONITOR.
--- NOTE | 2019-02-06 09:30 | NUR ---
ADMINISTERED MORPHINE FOR PAIN 02/09. WILL RE-ASSESS
--- NOTE | 2019-02-06 10:00 | NUR ---
FAXED ALL THE PAPER WORK AND REQUEST TO [facility], [place] , AND [facility] [place] . SPOKE WITH THE PATIENT AND PT STATED HE WANTED TO TALK TO HIS SISTER. PT WAS ASKED IF I CAN CALL HIS SISTER. PT STATED "I WILL CALL HER" CM TO FOLLOW
--- NOTE | 2019-02-06 11:33 | NUR ---
RECEIVED A CALL FROM [facility] SPOKE WITH HEATH ,STATED DR CAVAZOS DECLINE THE CASE NO NEED FOR HIGHER LEVEL OF CARE.
--- NOTE | 2019-02-06 11:37 | NUR ---
HAN DAVIS CALLED SPOKE WITH SV[facility], REQUESTED MORE INFORMATION AND PROVIDED CM TO FOLLOW
--- NOTE | 2019-02-06 11:58 | NUR ---
ADMINISTERED BENADRYL FOR ITCHING DURING DIALYSIS TREATMENT. PATIENTS BLOOD PRESSURE PRIOR TO DIALYSIS IS 210/134
--- NOTE | 2019-02-06 12:34 | NUR ---
DID NOT ADMINISTER PM MEDICATION D/T DIALYSIS. WILL INFUSE ZOSYN AFTER DIALYSIS IS COMPLETED.
--- NOTE | 2019-02-06 13:00 | NUR ---
SPOKE WITH THE PATIENT THAT IF HE WANTS TO BE TRANSFERRED PER PT HE SPOKE WITH THE SISTER AND NOT SURE IF HE WANTS IT OR NOT AND WANTED TO ASK ONE MORE SISTER. AT THE SAME TIME DR MATTHEW MICHAELS WALKED IN AND DISCUSSED WITH THE PATIENT AND DR ROBIN AND DECIDED NO NEED FOR TRANSFER TO HIGHER LEVEL OF CARE, INSTEAD TO TRANSFER TO ICU FOR IV DRIP MEDS TO CONTROL THE BP. THEN CANCELLED TRANSFER TO HIGHER LEVEL OF CARE.
[2019-02-06 13:56] LABS: BASOPHILS # (AUTO) 0.3 K/uL (0.00-0.22); BASOPHILS % (AUTO) 2.9 % (0.0-2.0); EOSINOPHILS # (AUTO) 0.5 K/uL (0-0.4); EOSINOPHILS % (AUTO) 4.6 % (0.0-4.0); HEMATOCRIT 23.7 % (36-52); HEMOGLOBIN 7.7 g/dL (12.0-18.0); LYMPHOCYTES # (AUTO) 1.3 K/uL (2.0-11.5); LYMPHOCYTES % (AUTO) 13.1 % (20.5-51.1); MEAN CORPUSCULAR HEMOGLOBIN 29 pg (27-31); MEAN CORPUSCULAR HGB CONC 33 g/dL (33-37); MONOCYTES # (AUTO) 0.3 K/uL (0.8-1.0); MONOCYTES % (AUTO) 2.8 % (1.7-9.3); NEUTROPHILS # (AUTO) 7.6 K/uL (1.8-7.7); NEUTROPHILS % (AUTO) 76.6 % (42.2-75.2); PLATELET COUNT (AUTO) 266 K/uL (140-450); RED BLOOD CELL COUNT(AUTO) 2.64 MIL/uL (4.20-6.10); RED CELL DISTRIBUTION WIDTH 15.3 % (11.6-13.7)
--- NOTE | 2019-02-06 14:24 | NUR ---
RECEIVED ORDERS FOR TRANSFER TO ICU. WILL CALL AND GIVE REPORT ON PATIENT. PATIENT WILL BE GOING TO BED 3
--- NOTE | 2019-02-06 15:30 | NUR ---
PATIENT HAS BEEN TRANSFERRED TO ICU BED 3 IN STABLE CONDITION. PT TRANSPORTED ON MONITOR, ALL PERSONAL BELONGINGS WERE TAKEN WITH PATIENT. GAVE REPORT TO PERLA ZAMUDIO. NO SIGNS OF RESP DISTRESS DURING TRANSFER. MEDICATION AND CHART TAKEN WITH PATIENT FOR CONTINUITY OF CARE.
--- NOTE | 2019-02-06 15:35 | NUR ---
RECEIVED PATIENT FROM [facility] RN, IRENA, FOR CONTINUITY OF CARE. PATIENT IS AAOX4, SKIN IS WARM, DRY, INTACT. HE HAS PICC LINE TO BHAVIN AND AV SHUNT TO THANIA. PATIENT IS ON ROOM AIR, BREATHING EVEN AND UNLABORED. ST ON MONITOR, COMPLAINS OF 9/10 PAIN. BP IS 236/135. HOB IS SEMI-PEÑALOZA, BED LOCKED IN LOW POSITION, SIDE RAILS UP 3X. NO SIGNS OF DISTRESS NOTED. WILL CONTINUE TO MONITOR.
[2019-02-06] MEDS: NITROPRUSSIDE 50 MG in DEXTROSE 5% 250 ML IV PRN ×4 (16:09→23:56)
--- NOTE | 2019-02-06 16:10 | NUR ---
PATIENT STARTED ON NITROPRUSSIDE DRIP, HIS WEIGHT IS 73.16KG, STARTED DRIP AT O.25 MCG/KG/MIN. WILL CONTINUE TO MONITOR
--- NOTE | 2019-02-06 16:19 | NUR ---
PATIENT GIVEN MORPHINE IVP 4MG PRN FOR PAIN. PATIENT TOLERATED WELL.
[2019-02-06 16:54] LABS: ANION GAP 18.2 (8-16); CARBON DIOXIDE 25.7 mmol/L (21-32)
[2019-02-06 16:56] LABS: CREATININE 5.7 mg/dL (0.7-1.3); POTASSIUM 2.9 mmol/L (3.5-5.1)
[2019-02-06] MEDS ORDERED: KCL 20 MEQ/WATER INJ PREMIX 200 ML IV SCH (17:15)
--- NOTE | 2019-02-06 17:18 | NUR ---
PATIENT IS COMPLAINING OF FEELING RESTLESS, TOLD PATIENT THAT DOCTOR ORDERED ATIVAN PO. PATIENT IS UPSET STATES THAT HE WOULD RATHER TAKE ATIVAN IVP SINCE HE HAS BEEN TAKING TOO MANY PO MEDS.
[2019-02-06] MEDS: LORazepam 2 MG/ML VIAL IVP PRN (17:28)
--- NOTE | 2019-02-06 17:32 | NUR ---
CALLED DR. ROBIN, UPDATED ON PATIENT'S CONDITION, TOLD HIM THAT PATIENT DOES NOT WANT ATIVAN PO. RECEIVED ORDER FOR PRN ATIVAN 1MG IVP.
--- NOTE | 2019-02-06 17:50 | NUR ---
PROVIDED PATIENT WITH DINNER TRAY, NO SIGNS OF DISTRESS NOTED.
--- NOTE | 2019-02-06 18:49 | NUR ---
IS HERE TO SEE PATIENT, UPDATED ON PATIENT'S CONDITION.
--- NOTE | 2019-02-06 19:10 | NUR ---
CHANGE OF SHIFT REPORT GIVEN AT BEDSIDE BY DAY NURSE. PATIENT ASLEEP IN BED. PATIENT MODERATELY DIFFICULT TO AROUSE. WHEN AWAKE, PATIENT AA0X4. PERRLA BILATERALLY. ABLE TO MAKE NEEDS KNOWN. ABLE TO COMPREHEND WHAT STAFF IS SAYING. PATIENT HAS FOOD AT BEDSIDE. PATIENT ON REGULAR DIET. PATIENT HAS CELL PHONE, BACKPACK, CHARGERS AND GLASSES AT BEDSIDE. PATIENT ON ROOM AIR. LUNG SOUNDS CLEAR. RESPIRATIONS SYMMETRICAL AND BILATERAL. HR REGULAR. BOWEL SOUNDS ACTIVE IN ALL 4 QUADRANTS. PATIENT HAS NON SKID SOCKS ON. BED IN LOWEST POSITION. SIDE RAILS UP. PATIENT RUNNING ON 1.75 MCG OF NITROPRUSSIDE IN LEFT UPPER MIDLINE. MIDLINE INTACT, ASYMPT. AND PATENT. PATIENT HAS AV SHUNT IN RIGHT UPPER ARM AND HAD DIALYSIS TODAY. DRESSING IS DRY AND INTACT. PATIENT STATES "IM TIRED BUT RELIEVED' DENIES PAIN AT THIS TIME. WILL CONTINUE TO MONITOR. CALL LIGHT WITHIN REACH. SAFETY MEASURES IN PLACE.
--- NOTE | 2019-02-06 19:50 | NUR ---
ASKED PATIENT IF THEY WANTED TO SIT IN RECLINING CHAIR, PATIENT AGREED. ASSISTED PATIENT TO RECLINING CHAIR WITH NON SKID SOCKS ON. TUBINGS AND LINES INTACT. PATIENT WENT BACK TO SLEEP. CALL LIGHT WITHIN REACH. WILL CONTINUE TO MONITOR.
[2019-02-06] MEDS: MIRTAZAPINE 15 MG TAB PO SCH (21:00)
[2019-02-06] MEDS ORDERED: NIFEdipine 60 MG TABER PO SCH ×2 (21:00)
--- NOTE | 2019-02-06 21:15 | NUR ---
ASKED PATIENT IF WANTED TO GET BACK INTO BED. PATIENT STATES "I WANT TO STAY IN THE CHAIR STILL". ADMINSITERED MEDICATIONS PER MD ORDERS. PATIENT REFUSED REMERON "IT DOESN'T WORK FOR ME SO I DON'T TAKE IT" MD AWARE. WILL CONTINUE TO MONITOR. CALL LIGHT WITHIN REACH. GAVE PATIENT ICE CHIPS PER REQUEST
[2019-02-06] MEDS: NIFEdipine 60 MG TABER PO SCH (21:16)
[2019-02-06] MEDS: CARVEDILOL 12.5 MG TAB PO SCH (21:17)
--- NOTE | 2019-02-06 21:40 | NUR ---
CHARGE NURSE CALLED AUTOMATIC SPLICING MACHINE OPERATOR TO RETRIEVE MORE NITROPRUSSIDE.
--- NOTE | 2019-02-06 22:42 | NUR ---
INTERIOR SURFACE INSULATION WORKER AND CHARGE NURSE SPOKE WITH PAINT MIXER PHARMACIST. CHELITA, WHO STATES [facility] DOES NOT HAVE MEDICATION. WILL FOLLOW UP TO RETRIEVE MEDICATION.
--- NOTE | 2019-02-06 23:15 | NUR ---
PATIENT HAS NO MORE MEDICATION IN IV BAG. CALL FROM PHARMACIST THAT HE GOT MEDICATION FROM [facility] AND WILL BE THERE SHORTLY. [id number] LINE OPERATOR CALLED AND STATES PHARMACIST ON SITE. WILL BE THERE SHORTY. PATIENT SLEEPING AT THIS TIME. WILL CONTINUE TO MONITOR. FLACC 0.
[2019-02-07] VITALS (33 sets, daily range): BP systolic 93–183; BP diastolic 39–111
--- NOTE | 2019-02-07 00:20 | NUR ---
DR. MEJIA AT PATIENT BEDSIDE. NOTIFIED MD OF PATIENTS MEDICATION ADMINISTRATION.
--- NOTE | 2019-02-07 00:32 | NUR ---
PATIENT ON PHONE WATCHING VIDEOS AT THIS TIME. NO COMPLAINTS OF PAIN NOTED. WILL CONTINUE TO MONITOR. PATIENT STATES HE WANTS TO STAY IN THE CHAIR AT THIS TIME. PATIENT REPOSITIONING SELF IN CHAIR. STANDBY ASSISTANCE NEEDED. CALL LIGHT WITHIN REACH.
[2019-02-07] MEDS: MORPHINE SULFATE 4 MG/ML SYR IVP PRN ×4 (01:54→21:21)
--- NOTE | 2019-02-07 02:33 | NUR ---
PATIENT APPEARS RESTLESS. STATES HAD A HEADACHE THE WHOLE TIME BUT NEVER VOICED IT UNTIL NOW. STATES "I THINK ITS THE NITRO MEDICATION". PATIENT REFUSES BED AND WANTS TO STAY IN CHAIR. CONTINUES TO WATCH VIDEOS ON PHONE. BP 99/59. DECREASED NITROPRUSSIDE TO 2MCG. WILL CONTINUE TO MONITOR. AA0X4. ABLE TO MAKE NEEDS KNOWN. CALL LIGHT WITHIN REACH.
[2019-02-07] MEDS: NITROPRUSSIDE 50 MG in DEXTROSE 5% 250 ML IV PRN (02:50)
--- NOTE | 2019-02-07 03:00 | NUR ---
PATIENT STATES HEADACHE IS FEELING MUCH BETTER. PATIENT STATES HE STILL WANTS TO SIT IN CHAIR. REPOSITIONED SELF WITH STANDBY ASSISTANCE. PATIENT IN AND OUT OF SLEEP AND WATCHING VIDEOS ON TELEPHONE. WILL CONTINUE TO MONITOR. PATIENT DENIES HAVING TO USE THE RESTROOM FOR URINE OR BM. WILL CONTINUE TO MONITOR.
--- NOTE | 2019-02-07 04:21 | NUR ---
PATIENT STATES NO HEADACHE AT ALL. STILL IN RECLINING CHAIR PER CHOICE. CONTINUES TO REPOSITION SELF WITH STANDBY ASSISTANCE AND TEACHINGS TO WHY IT IS IMPORTANT. PATIENT STATES HE UNDERSTANDS. CONTINUES TO WATCH VIDEOS AND FALL TO SLEEP AT TIMES. PATIENT BP IS DECREASING. CONTINUING TO DECREASE NITROPRUSSIDE DRIP. SEE IV SPREADSHEET.
[2019-02-07] MEDS: PIPERACILLIN/TAZOBACTAM 2.25 GM in DEXTROSE 5% 50 ML IV SCH (04:33)
--- NOTE | 2019-02-07 05:00 | NUR ---
PATIENT REFUSES AM CARE AT THIS TIME. STATES WANTS TO STAY IN RECLINING CHAIR. OFFER PILLOW. PATIENT ACCEPTED. STILL NO URINE OR BM. WILL CONTINUE TO MONITOR.
--- NOTE | 2019-02-07 06:45 | NUR ---
PATIENT LYING IN RECLINER SLEEPING.
--- NOTE | 2019-02-07 07:30 | NUR ---
DR. GEORGE AND RESIDENT GROUP IN TO SEE PT. PER DR. ROBIN, HOLD HYDRALAZINE AND CLONIDINE FOR 0900 D/T TO DECREASED BP 107/54 AT THIS TIME.
--- NOTE | 2019-02-07 07:30 | NUR ---
RECEIVED BEDSIDE REPORT FROM RECRUITMENT MANAGER RN. PT IS SLEEP ON RECLINING CHAIR AT BEDSIDE. AROUSABLE TO NAME. AAOX4. ABLE TO MAKE NEEDS KNOWN. DENIES PAIN. TEMP 99.4. SINUS TACHYCARDIA ON MONITOR. S1 +S2 HEARD. PT IS ON ROOM AIR. SPO2 96%, BREATHING EVEN AND UNLABORED. LUNGS SOUND CLEAR THROUGHOUT. ABDOMEN SOFT, NONTENDER W/ ACTIVE BOWEL SOUNDS. MIDLINE TO LEFT UPPER ARM ASYMPTOMATIC, PATENT AND INTACT W/ GOOD BLOOD RETURN. NITROPRUSSIDE DRIP OFF AT THIS TIME. AV SHUNT TO RIGHT UPPER ARM ASYMPTOMATIC AND INTACT. PULSES PALPABLE TO ALL EXTREMITIES. PT HAS NONSKID SOCKS ON. SAFETY PRECAUTIONS IN PLACE. CALL LIGHT WITHIN REACH. NO SIGNS OF DISTRESS AT THIS TIME. WILL CONTINUE TO MONITOR.
[2019-02-07] MEDS: VIT-B COMP/VIT-C/FOLIC ACID 1 TAB PO SCH (08:28)
[2019-02-07] MEDS: CARVEDILOL 12.5 MG TAB PO SCH ×2 (08:28→21:09)
[2019-02-07] MEDS: SPIRONOLACTONE 25 MG TAB PO SCH (08:28)
[2019-02-07] MEDS: CALCIUM ACETATE 667 MG TAB PO SCH ×3 (08:29→16:03)
[2019-02-07] MEDS: VALSARTAN 80 MG TAB PO SCH (08:29)
[2019-02-07] MEDS: NIFEdipine 60 MG TABER PO SCH ×2 (08:29→21:08)
--- NOTE | 2019-02-07 08:30 | NUR ---
MEDICATIONS ADMINISTERED ORDERED. BP 147/86 AT THIS TIME. HOLD HYDRALAZINE AND CLONIDINE PER DR. ROBIN.
[2019-02-07] MEDS: MINOXIDIL 10 MG TAB PO SCH ×2 (08:32→21:07)
[2019-02-07] MEDS: PRAZOSIN 5 MG PO SCH ×2 (08:32→21:10)
[2019-02-07] MEDS: cloNIDine 0.1 MG TAB PO SCH ×3 (09:00→16:12)
[2019-02-07] MEDS: hydrALAZINE 25 MG TAB PO SCH ×3 (09:00→16:11)
--- NOTE | 2019-02-07 09:02 | NUR ---
DR. CASTRO IN TO SEE AND EXAMINE PT. WILL FOLLOW UP ON ORDERS.
--- NOTE | 2019-02-07 09:15 | NUR ---
DR. JACKSON IN TO SEE AND EXAMINE PT. WILL FOLLOW UP ON ORDERS.
[2019-02-07] MEDS: diphenhydrAMINE 50 MG/ML VIAL IVP PRN ×2 (10:14→21:38)
--- NOTE | 2019-02-07 12:33 | NUR ---
SCHEDULED MED GIVEN. HOLD HYDRALAZINE AND CLONIDINE PER DR. LIRA IN THE UNIT. BP 135/83 AT THIS TIME.
--- NOTE | 2019-02-07 13:00 | NUR ---
PT REFUSED TO HAVE LUNCH STATING THAT HE DID NOT LIKE THE FOOD AND REQUESTED CHICKEN NOODLE SOUP. CALLED KITCHEN AND CHICKEN NOODLE SOUP WAS DELIVERED BY KITCHEN STAFF. PT STILL REFUSED TO EAT. HAD NEPRO DRINK AND CUP NOODLE FROM HOME INSTEAD. VSS. NO C/O PAIN OR DISCOMFORT AT THIS TIME.
--- NOTE | 2019-02-07 14:16 | NUR ---
CALLED JULIO POLANCO (DIALYSIS), SPOKE TO JULIO REGARDING HEMODIALYSIS ORDER FOR TOMORROW 02/08/19.
--- NOTE | 2019-02-07 16:30 | NUR ---
PT TRANSFERRED TO TELEMETRY ROOM 124B. REPORT GIVEN TO PERLA LUGO. VSS. NO SIGNS OF DISTRESS AT THIS TIME.
--- NOTE | 2019-02-07 16:51 | NUR ---
PT RESTING IN BED. NO S/S OF RESPIRATORY DISTRESS NOTED.
--- NOTE | 2019-02-07 18:00 | NUR ---
pt sitting at bedside. no s/s of respiratory distress noted. call light in reach.
--- NOTE | 2019-02-07 20:00 | NUR ---
RECEIVED PATIENT AWAKE IN BED, WATCHING VIDEOS ON HIS PHONE. PT ON ROOM AIR. PT DENIES SOB, NO S/S OF DISTRESS NOTED. PT DENIES CHEST PAIN AT THIS TIME. NO EDEMA NOTED. BED LOWERED WITH CALL LIGHT WITHIN REACH. WILL CONTINUE TO MONITOR
[2019-02-07] MEDS: MIRTAZAPINE 15 MG TAB PO SCH (21:00)
--- NOTE | 2019-02-07 21:09 | NUR ---
ADMINISTERED DUE MEDS. PATIENT TOLERATED WELL
--- NOTE | 2019-02-07 21:21 | NUR ---
RECEIVED PATIENT ON ROOM AIR, PULSE OX SAT 96%. PATIENT DENIES ANY SOB AT THIS TIME. PRN BREATHING TREATMENT NOT INDICATED. NO ACUTE RESPIRATORY DISTRESS NOTED. WILL CONTINUE TO MONITOR.
[2019-02-07] MEDS: ONDANSETRON 4 MG/2 ML VIAL IM/IVP PRN (21:23)
[2019-02-08 00:50] VITALS: BP 158/91
[2019-02-08] MEDS: LORazepam 2 MG/ML VIAL IVP PRN ×2 (00:53→12:45)
--- NOTE | 2019-02-08 02:36 | NUR ---
PATIENT AWAKE IN BED, WATCHING VIDEOS ON HIS PHONE. NO S/S OF DISTRESS NOTED
[2019-02-08 05:05] VITALS: BP 185/104
[2019-02-08] MEDS: hydrALAZINE 20 MG/ML VIAL IVP PRN (05:08)
[2019-02-08] MEDS: MORPHINE SULFATE 4 MG/ML SYR IVP PRN ×2 (05:18→11:50)
[2019-02-08] MEDS: ONDANSETRON 4 MG/2 ML VIAL IM/IVP PRN (05:19)
[2019-02-08 06:30] VITALS: BP 165/99
--- NOTE | 2019-02-08 07:10 | NUR ---
PT RECEIVED FROM NIGHT RNDAVE. PT SITTING AT BEDSIDE WATCHING VIDEOS ON PHONE. AAOX4. BREATHING EVEN AND UNLABORED AND NO SIGNS OF ACUTE DISTRESS. WILL CONTINUE CARE AND CONTINUE TO ASSESS FOR CHANGES IN CONDITION.
--- NOTE | 2019-02-08 07:20 | NUR ---
PT REPORT GIVEN AT BEDSIDE. PATIENT ENDORSED IN STABLE CONDITION
[2019-02-08] MEDS: CALCIUM ACETATE 667 MG TAB PO SCH ×2 (08:00→11:40)
--- NOTE | 2019-02-08 08:19 | NUR ---
DIALYSIS NURSE AT BEDSIDE. PT ASKED THAT I REMOVE HIS BREAKFAST TRY BECAUSE HE DID NOT WANT TO EAT RENAL DIET FOOD. PT REFUSED MEAL DESPITE TEACHING.
--- NOTE | 2019-02-08 08:35 | NUR ---
PT REQUESTED BENADRYL FOR ITCHING DURING DIALYSIS. DIALYSIS NURSE BETZY STATED PT RECEIVED BENADRYL FOR LAST HD TREATMENT DUE TO ITCHING AND ANXIETY. WILL ADMINISTER ORDERED BENADRYL.
[2019-02-08] MEDS: diphenhydrAMINE 50 MG/ML VIAL IVP PRN (08:39)
[2019-02-08] MEDS: EPOETIN ALFA 10,000 UNITS/ML VIAL IV SCH (08:39)
--- NOTE | 2019-02-08 08:44 | NUR ---
PT RECEIVED ORDERED 25 MG BENADRYL FOR ITCHING DURING HD. PT SHOES NO SIGNS OF ACUTE DISTRESS AT THIS TIME.
[2019-02-08] MEDS: NIFEdipine 60 MG TABER PO SCH (08:45)
[2019-02-08] MEDS: cloNIDine 0.1 MG TAB PO SCH ×2 (08:45→13:17)
[2019-02-08] MEDS: SPIRONOLACTONE 25 MG TAB PO SCH (08:45)
[2019-02-08] MEDS: hydrALAZINE 25 MG TAB PO SCH ×2 (08:45→13:17)
[2019-02-08] MEDS: MINOXIDIL 10 MG TAB PO SCH (08:46)
[2019-02-08] MEDS: CARVEDILOL 12.5 MG TAB PO SCH (08:46)
[2019-02-08] MEDS: PRAZOSIN 5 MG PO SCH (08:46)
[2019-02-08] MEDS: VALSARTAN 80 MG TAB PO SCH (08:46)
[2019-02-08] MEDS: VIT-B COMP/VIT-C/FOLIC ACID 1 TAB PO SCH (08:47)
--- NOTE | 2019-02-08 10:00 | NUR ---
DIALYSIS NURSE AT BEDSIDE AND PT RECIEVING HD. PT IN BED, AAOX4. NO SIGNS OF ACUTE DISTRESS. BREATHING EVEN AND UNLABORED. NO SIGNS OF ACUTE DISTRESS AT THIS TIME. WILL CONTINUE TO MONITOR FOR CHANGES IN CONDITION.
[2019-02-08] MEDS ORDERED: NIFE60TE74 PO (10:13)
[2019-02-08] MEDS ORDERED: CARV12.52 PO (10:13)
[2019-02-08] MEDS ORDERED: PHO667 PO (10:13)
[2019-02-08] MEDS ORDERED: VALS80TA2 PO (10:13)
[2019-02-08] MEDS ORDERED: CLON0.1T42 PO (10:13)
[2019-02-08] MEDS ORDERED: HYDR-4420 PO (10:13)
--- NOTE | 2019-02-08 10:55 | NUR ---
DIALYSIS NURSE AT BEDSIDE AND PT RECEIVING HD. PT IN BED, SLEEPING. NO SIGNS OF ACUTE DISTRESS. BREATHING EVEN AND UNLABORED. NO SIGNS OF ACUTE DISTRESS AT THIS TIME. WILL CONTINUE TO MONITOR FOR CHANGES IN CONDITION.
[2019-02-08 10:59] VITALS: BP 152/84
[2019-02-08 12:00] VITALS: BP 158/65
[2019-02-08 13:17] VITALS: BP 169/92
--- NOTE | 2019-02-08 13:24 | NUR ---
PT RECEIVED DISCHARGE PAPERWORK AND VERBALIZED UNDERSTANDING REGARDING NEW PRESCRIPTIONS AND FOLLOW-UP APPOINTMENT WITH DR. NUR. PT STATED HE WILL NEED TO RESCHEDULE THE APPOINTMENT BECAUSE IT FALLS ON A DIALYSIS DAY. ALL OF PT'S QUESTIONS ANSWERED. PT REFUSED BUS PASS AND STATED HE WILL HAVE A FRIEND PICK HIM UP. MIDLINE CATHETER TO LUE REMOVED, CATHETER INTACT. ID BANDS CUT OFF.
== END 2019-02-08 13:30 | disposition home or self-care (01) | DRG 720 ==
LOC: MED 02:18 → MMU 10:37 → MIC 02-06 15:30 → MTU 02-07 16:30
PROVIDERS: ADMIT General Practice; ATTEND General Practice
PROC: 5A1D70Z Performance of Urinary Filtration, Intermittent, Less than 6 Hours Per Day (ICD-10-PCS; principal; 2019-01-29)
PROC: 5A1D70Z Performance of Urinary Filtration, Intermittent, Less than 6 Hours Per Day (ICD-10-PCS; 2019-01-30)
PROC: 5A1D70Z Performance of Urinary Filtration, Intermittent, Less than 6 Hours Per Day (ICD-10-PCS; 2019-01-31)
PROC: 5A1D70Z Performance of Urinary Filtration, Intermittent, Less than 6 Hours Per Day (ICD-10-PCS; 2019-02-02)
PROC: 5A1D70Z Performance of Urinary Filtration, Intermittent, Less than 6 Hours Per Day (ICD-10-PCS; 2019-02-04)
PROC: 05HY33Z Insertion of Infusion Device into Upper Vein, Percutaneous Approach (ICD-10-PCS; 2019-02-04)
PROC: B54NZZA Ultrasonography of Left Upper Extremity Veins, Guidance (ICD-10-PCS; 2019-02-04)
PROC: 5A1D70Z Performance of Urinary Filtration, Intermittent, Less than 6 Hours Per Day (ICD-10-PCS; 2019-02-06)
PROC: 5A1D70Z Performance of Urinary Filtration, Intermittent, Less than 6 Hours Per Day (ICD-10-PCS; 2019-02-08)
DX: A41.9 Sepsis, unspecified organism (principal); N17.0 Acute kidney failure with tubular necrosis; J96.01 Acute respiratory failure with hypoxia; I13.2 Hypertensive heart and chronic kidney disease with heart failure and with stage 5 chronic kidney disease, or end stage renal disease; J18.9 Pneumonia, unspecified organism; N18.6 End stage renal disease; I50.43 Acute on chronic combined systolic (congestive) and diastolic (congestive) heart failure; D63.8 Anemia in other chronic diseases classified elsewhere; N40.0 Benign prostatic hyperplasia without lower urinary tract symptoms; E83.39 Other disorders of phosphorus metabolism; E83.51 Hypocalcemia; R59.1 Generalized enlarged lymph nodes; F41.9 Anxiety disorder, unspecified; R04.2 Hemoptysis; I16.0 Hypertensive urgency; Z99.2 Dependence on renal dialysis; Z82.49 Family history of ischemic heart disease and other diseases of the circulatory system; Z83.3 Family history of diabetes mellitus; Z79.899 Other long term (current) drug therapy; Z91.19 Patient's noncompliance with other medical treatment and regimen
CPT/HCPCS: 36415; 71045; 71250; 71270; 80048; 80053; 80305; 81001; 82150; 82607; 82728; 82746; 83540; 83605; 83690; 83735; 83835; 83880; 84100; 84484; 85025; 85045; 85610; 87040; 87070; 87081; 87205; 87804; 90935; 93005; 93308; 93976; 94640; 96374; 96375; 99285; C1751; J0360; J0885; J1170; J1200; J1644; J2060; J2270; J2405; J2543; J3010; J3480; J3490; J7030; J7060; J7620; Q0092; Q0162; Q9967

== ENCOUNTER 2019-02-12 18:24 | Inpatient (IN) | payer MEDICARE, MEDICAID ==
[~2019-02-12] VITALS: Ht 172.7 cm; Wt 73.5 kg
[~2019-02-12 18:24] MED LIST changes: -AMLO10TA PO; +CARV12.52 PO; +CLON0.1T42 PO; -CLON0.3T41 PO; -DILT120C19 PO; +HYDR-4420 PO; +METH4TAB1 PO; +NIFE60TE74 PO; -ONDA4ODT2 PO; +PHO667 PO; +VALS80TA2 PO
[2019-02-12 18:35] VITALS: BP 183/94
[2019-02-12] MEDS ORDERED: MORPHINE SULFATE 4 MG/ML SYR IM ONE (18:40)
--- NOTE | 2019-02-12 18:54 | NUR ---
PT C/O SOB AND BLE EDEMA +1 NON-PITTING, WORSENING SINCE LAST NIGHT. REPORTS FEVER/CHILLS. REPORTS CHRONIC NON-PRODUCTIVE COUGH. REPORTS SHARP CP RADIATING TO THE MEDIAL BACK, 02/09. PT IS HYPERTENSIVE AND TACHYCARDIAC, PT IS ON MONITOR AND WILL CONTINUE TO MONITOR HIS VITALS; PATIENT POSITIONED FOR COMFORT; HOB ELEVATED; BEDRAILS UP X1; BED DOWN. PT IS SITTING IN BED COMFORTABLELY DUE TO THE SOB. ER MD MADE AWARE OF PT STATUS.
--- NOTE | 2019-02-12 19:14 | NUR ---
Pt report given to PERLA [place]. Transfer of care at this time.
--- NOTE | 2019-02-12 19:16 | NUR ---
REPORT RECIEVED FROM PERLA ZHENG. PT SITTING UPRIGHT IN BED. HOB ELEVATED. BP ELEVATED. SHAWNEE QUIROZ. AA0X4.
--- NOTE | 2019-02-12 20:48 | NUR ---
DR ROUSE AT BEDSIDE
--- NOTE | 2019-02-12 20:49 | NUR ---
PT ADDS THAT HE HAS BEEN HAVING CP X 1 WEEK RADIATING TO NECK AND BACK. +NAUSEA BUT NO VOMITING. PT NON-DIAPHORETIC
[2019-02-12] MEDS ORDERED: MORPHINE SULFATE 4 MG/ML SYR IVP ONE (20:55)
[2019-02-12] MEDS ORDERED: ASPIRIN 81 MG TAB.CHEW PO ONE (20:55)
[2019-02-12] MEDS ORDERED: ONDANSETRON 4 MG/2 ML VIAL IVP ONE (20:55)
[2019-02-12] MEDS ORDERED: NITROGLYCERIN 0.4 MG TAB SL ONE (20:55)
--- NOTE | 2019-02-12 21:15 | NUR ---
MEDICATIONS ADMINSITERED ORDERED. PT REFUSED NITRO, STATES IT DOESNT HELP HIM. WILL CONTINUE TO MONITOR IV
--- NOTE | 2019-02-12 21:16 | NUR ---
LAB AT BEDSIDE
--- NOTE | 2019-02-12 21:32 | NUR ---
XRAY AT BEDSIDE
[2019-02-12 21:43] LABS: HEMATOCRIT 22.5 % (36-52); HEMOGLOBIN 7.3 g/dL (12.0-18.0); MEAN CORPUSCULAR HEMOGLOBIN 30 pg (27-31); MEAN CORPUSCULAR HGB CONC 32 g/dL (33-37); MEAN CORPUSCULAR VOLUME 92.2 fL (80-94); PLATELET COUNT (AUTO) 251 K/uL (140-450); RED BLOOD CELL COUNT(AUTO) 2.45 MIL/uL (4.20-6.10); RED CELL DISTRIBUTION WIDTH 17.3 % (11.6-13.7); WHITE BLOOD COUNT (AUTO) 8.7 K/uL (4.8-10.8)
--- NOTE | 2019-02-12 21:51 | NUR ---
BP 193/112, PT ON 4 L NC AT 97%, TACHY AT 109
[2019-02-12 21:59] LABS: PROTHROMBIN TIME 11.9 secs (10.8-13.4)
[2019-02-12 22:03] LABS: ALBUMIN 3.7 g/dL (3.4-5.0); ANION GAP 21.8 (8-16); CARBON DIOXIDE 22.2 mmol/L (21-32); TOTAL BILIRUBIN 0.7 mg/dL (0.0-1.0)
--- NOTE | 2019-02-12 22:17 | NUR ---
BUN 83 AND CR 10.6, REPORTED TO DR ROUSE
[2019-02-12 22:18] LABS: CREATININE 10.6 mg/dL (0.7-1.3)
[2019-02-12 22:20] LABS: EOSINOPHILS % (MANUAL) 4 % (0-4); LYMPHOCYTES % (MANUAL) 15 % (20-46); MONOCYTES % (MANUAL) 2 % (5-12)
--- NOTE | 2019-02-12 22:45 | NUR ---
NOTIFIED DR ROUSE OF PTS CURRENT BP
--- NOTE | 2019-02-12 22:48 | NUR ---
PT HAS DIALYSIS M,W,F LAST TREATMENT ON WEDNESDAY
[2019-02-12] MEDS ORDERED: cloNIDine 0.1 MG TAB PO ONE (22:55)
--- NOTE | 2019-02-12 23:00 | NUR ---
LAB AT BEDSIDE
--- NOTE | 2019-02-12 23:10 | NUR ---
CATAPRES ADMINISTERED. BP CURRENTLY 187/118
[2019-02-12] MEDS ORDERED: HYDROcodone/APAP 5/325 MG 1 TAB TAB PO PRN (23:25)
[2019-02-12] MEDS ORDERED: ONDANSETRON 4 MG/2 ML VIAL IM/IVP PRN (23:25)
[2019-02-12] MEDS ORDERED: DOCUSATE SODIUM 100 MG GELCAP PO PRN (23:25)
[2019-02-12] MEDS ORDERED: ONDA4TAB PO (23:31)
[2019-02-12] MEDS ORDERED: AMLO10TA PO (23:31)
[2019-02-12] MEDS ORDERED: TEMA15CA24 PO (23:31)
[2019-02-12] MEDS ORDERED: HYDR2TAB6 PO (23:31)
[2019-02-12] MEDS ORDERED: [UNRECOGNIZED DRUG - CODE] PO (23:31)
[2019-02-12 23:49] LABS: MAGNESIUM 2.2 mg/dL (1.8-2.4); PHOSPHORUS 7.9 mg/dL (2.5-4.9)
[2019-02-13] VITALS (7 sets, daily range): BP systolic 158–195; BP diastolic 83–125
--- NOTE | 2019-02-13 00:17 | NUR ---
Patient will be admitted to care of [facility]. Admited to TELE. Will go to room 118. Belongings list completed. Report to SELENE DUNCAN. SELENE DUNCAN MADE AWARE OF PTS CURRENT VITALS AND POSSIBLE BLOOD TRANSFUSION
--- NOTE | 2019-02-13 00:17 | NUR ---
RECEIVED BEDSIDE REPORT FROM BILINGUAL MEDICAL RECEPTIONIST. PT IS AAOX4 ON NC 4L O2. RR ARE EQUAL AND UNLABORED. LUNG SOUNDS ARE CLEAR. SKIN IS INTACT. ACTIVE BOWEL SOUNDS X4 LBM X4 DAYS AGO PT ENDORSES LOW APPETITE AND PO INTAKE. IV ON LAC 20G HAS AV SHUNT ON THANIA HD M,W,F LAST DIALYSIS ON WEDNESDAY 3L OUTPUT. C/C NAUSEA,FEVER,SOB AND LEG SWELLING. DX CHF, ANEMIA. MRSA SWAB OBTAINED. ORIENTED PT TO ROOM,STAFF, VISITING HOURS AND CALL LIGHT. VS: 195/125 HR 105 97.6 100% ON 2L NC RR 18. SAFETY MEASURES ARE IN PLACE. WILL ROUND FREQUENTLY.
[2019-02-13] MEDS: NACL 0.9% 1,000 ML IV SCH ×2 (00:37→23:24)
--- NOTE | 2019-02-13 00:47 | NUR ---
UBALDO SIGNED CONSENT FORM FOR BLOOD TRANSFUSION. CONSENT FORM WALKED DIRECTLY TO TELE BY CHRIS DUNCAN
[2019-02-13] MEDS ORDERED: CALCIUM ACETATE 667 MG TAB PO SCH (01:00)
[2019-02-13] MEDS ORDERED: ALBUTEROL SULFATE/IPRATROPIU 3 ML SOL IH PRN (01:10)
[2019-02-13] MEDS ORDERED: hydrALAZINE 20 MG/ML VIAL IVP SCH (01:30)
[2019-02-13] MEDS ORDERED: FUROSEMIDE 40 MG/4 ML VIAL IVP SCH (01:30)
[2019-02-13] MEDS: MORPHINE SULFATE 2 MG/ML SYR IVP PRN ×3 (01:49→21:06)
--- NOTE | 2019-02-13 01:49 | NUR ---
ADMINISTERED DENZEL MEDICATIONS. ADMINISTER ZOFRAN AND MORPHINE FOR PAIN 02/09. SAFETY MEASURES ARE IN PLACE. CALL LIGHT IS WITHIN REACH.
[2019-02-13] MEDS ORDERED: LORazepam 2 MG/ML VIAL ONE (02:54)
--- NOTE | 2019-02-13 02:56 | NUR ---
ADMINISTERED ATIVAN 0.5 MG FOR ANXIETY ORDER IN PLACE. RECHECKED B/P 183/[address] MADE AWARE.
[2019-02-13] MEDS ORDERED: cloNIDine 0.1 MG TAB PO SCH (04:00)
--- NOTE | 2019-02-13 04:17 | NUR ---
ADMINISTERED CATAPRES PER ORDERS FOR B/P : 1843/107 HR 104. CALL LIGHT IS WITHIN REACH. WILL CONTINUE TO MONITOR
--- NOTE | 2019-02-13 05:13 | NUR ---
OBTAINED CONSENT FOR PICC LINE ALL QUESTIONS AND CONCERNS ANSWERED. CALLED PICC LINE NURSE AT [phone] AND LEFT MESSAGE WITH THE FOLLOWING INFORMATION: CALLING FROM [facility] UNIT FOR PT IN ROOM 118 LEFT PATIENT NAME AND ORDER AND HAVE CONSENT FOR PICC LINE ALSO LEFT OUR CALL BACK NUMBER.
--- NOTE | 2019-02-13 05:45 | NUR ---
PATIENT OFF TELE MONITOR AND IS REFUSING STATES HE IS ANXIOUS AND WANTS TO KEEP IT OFF. EDUCATED PT ON REASON OF TELE MONITORING VERBALIZED UNDERSTANDING. PATIENT RECEIVED ATIVAN AT 0256 AND IS DENZEL Q4H NEXT DOSE IS NOT DUE YET. HE IS LAYING IN BED WITH EQUAL AND UNLABORED RESPIRATIONS. RECHECKED B/P 158/98 HR 104. ALL NEEDS MET AT THIS TIME. CALL LIGHT IS WITHIN REACH. WILL CONTINUE TO MONITOR.
[2019-02-13] MEDS: ALBUTEROL SULFATE/IPRATROPIU 3 ML SOL IH SCH ×3 (07:00→19:00)
--- NOTE | 2019-02-13 07:25 | NUR ---
GAVE BEDSIDE REPORT TO DAY RN. PT ENDORSED IN STABLE CONDITION.
--- NOTE | 2019-02-13 07:26 | NUR ---
RECEIVED REPORT FROM BUFFER INFLATED PAD NURSE AT BEDSIDE, PT IS AAOX4, ABLE TO FOLLOW COMMANDS AND MAKE NEEDS KNOWN, VSS, DENIES PAIN, NO S/S OF DISTRESS, CLEAR LUNG SOUNDS TOÑO. REFUSED O2, DENIES CHEST PAIN, CAP REFILL <2 SEC, NO EDEMA, SR ON TELE MONITOR, SOFT ABDOMEN WITH ACTIVE BOWEL SOUNDS, CONTINENT WITH B&B'S, ANURIA, HD PATIENT, AV SHUT TO RIGHT UPPER ARM, ABLE TO MOVE ALL EXTREMITIES, SKIN IS INTACT, WARM AND DRY TO TOUCH, NO IV SITE AT THIS TIME, WAITING FOR PICC INSERTION PER REPORT, HOB ELEVATED TO 30 DEGREES, SAFETY MEASURES IN PLACE, CALL LIGHT WITHIN REACH, WILL CONTINUE TO MONITOR.
--- NOTE | 2019-02-13 08:27 | NUR ---
PATIENT HAS BEEN SCREENED AND CATEGORIZED HIGH NUTRITION RISK. PATIENT WILL BE SEEN WITHIN 1-2 DAYS OF ADMISSION. 02/13/19-02/14/[address]
--- NOTE | 2019-02-13 08:34 | NUR ---
DR. MARTINEZ CAME IN TO SEE PATIENT, ORDERED URGENT HD TODAY, CALLED JULIO POLANCO AND LEFT MESSAGE TO HER, WAITING FOR CALL BACK.
[2019-02-13] MEDS: PRAZOSIN 5 MG CAP PO SCH ×2 (09:00→21:21)
[2019-02-13] MEDS ORDERED: SPIRONOLACTONE 25 MG TAB PO SCH (09:00)
[2019-02-13] MEDS: hydrALAZINE 25 MG TAB PO SCH ×3 (09:00→16:51)
[2019-02-13] MEDS ORDERED: amLODIPine 5 MG TAB PO SCH (09:00)
[2019-02-13] MEDS: DILTIAZEM 60 MG TAB PO SCH ×5 (09:00→21:19)
[2019-02-13] MEDS: MINOXIDIL 10 MG TAB PO SCH ×2 (09:00→21:20)
[2019-02-13] MEDS: CARVEDILOL 3.125 MG TAB PO SCH ×3 (09:00→21:20)
[2019-02-13] MEDS ORDERED: PRAZOSIN 1 MG CAP PO SCH (09:00)
[2019-02-13] MEDS: cloNIDine 0.1 MG TAB PO SCH ×4 (09:00→16:50)
[2019-02-13] MEDS ORDERED: DILTIAZEM 120 MG CAPER PO SCH (09:00)
[2019-02-13] MEDS: SPIRONOLACTONE 50 MG TAB PO SCH (09:00)
--- NOTE | 2019-02-13 10:20 | NUR ---
HD STARTED AT BEDSIDE WITH HD NURSE
[2019-02-13] MEDS: EPOETIN ALFA 10,000 UNITS/ML VIAL SUBQ SCH (10:31)
[2019-02-13] MEDS: VIT-B COMP/VIT-C/FOLIC ACID 1 TAB PO SCH (10:31)
--- NOTE | 2019-02-13 10:35 | NUR ---
TIME OUT FOR PICC LINE INSERTION, PICC LINE NURSE AND US TECH AT BEDSIDE.
--- NOTE | 2019-02-13 11:20 | NUR ---
PICC LINE INSERTED TO LEFT UPPER ARM, X-RAY CONFIRMED PLACEMENT, OK TO USE PER PICC LINE NURSE.
--- NOTE | 2019-02-13 11:27 | NUR ---
ONE UNIT OF RBC OBTAINED FROM BLOOD BANK, GIVEN TO HD NURSE AT BEDSIDE, SHE WILL GIVE IT DURING THE HD.
[2019-02-13] MEDS: diphenhydrAMINE 50 MG/ML VIAL IVP PRN (11:35)
--- NOTE | 2019-02-13 12:33 | NUR ---
BLOOD TRANSFUSION COMPLETED DURING THE HD PER HD NURSE, NO S/S OF ADVERSE EFFECTS, PT TOLERATED WELL.
[2019-02-13 13:18] LABS: ANION GAP 18.6 (8-16); CARBON DIOXIDE 25.3 mmol/L (21-32)
[2019-02-13 13:19] LABS: PHOSPHORUS 4.9 mg/dL (2.5-4.9)
[2019-02-13 13:31] LABS: CREATININE 7.7 mg/dL (0.7-1.3); POTASSIUM 2.9 mmol/L (3.5-5.1)
[2019-02-13 13:53] LABS: BASOPHILS # (AUTO) 0.2 K/uL (0.00-0.22); EOSINOPHILS # (AUTO) 0.2 K/uL (0-0.4); EOSINOPHILS % (AUTO) 2.3 % (0.0-4.0); HEMATOCRIT 21.3 % (36-52); HEMOGLOBIN 7.2 g/dL (12.0-18.0); LYMPHOCYTES # (AUTO) 0.8 K/uL (2.0-11.5); LYMPHOCYTES % (AUTO) 9.2 % (20.5-51.1); MEAN CORPUSCULAR HEMOGLOBIN 31 pg (27-31); MEAN CORPUSCULAR HGB CONC 34 g/dL (33-37); MEAN CORPUSCULAR VOLUME 90.8 fL (80-94); MONOCYTES # (AUTO) 0.3 K/uL (0.8-1.0); NEUTROPHILS # (AUTO) 6.8 K/uL (1.8-7.7); NEUTROPHILS % (AUTO) 82.5 % (42.2-75.2); PLATELET COUNT (AUTO) 241 K/uL (140-450); RED BLOOD CELL COUNT(AUTO) 2.34 MIL/uL (4.20-6.10); RED CELL DISTRIBUTION WIDTH 16.8 % (11.6-13.7); WHITE BLOOD COUNT (AUTO) 8.3 K/uL (4.8-10.8)
--- NOTE | 2019-02-13 14:00 | NUR ---
HD COMPLETED, 3L OF OUTPUT PER HD NURSE, PT'S VSS, RESTING IN BED, NO S/S OF ADVERSE EFFECTS.
--- NOTE | 2019-02-13 14:29 | NUR ---
02/13/19 RD INITIAL ASSESSMENT COMPLETED PLEASE REFER TO NUTRITION ASSESSMENT UNDER CARE ACTIVITY FOR ESTIMATED NUTRITIONAL NEEDS. 1. CONTINUE RENAL, CARDIAC, NA2GM DIET TOLERATED 2. RECOMMEND NEPRO ONCE DAILY 3. ENCOURAGED INCREASING PO INTAKE 4. RD TO FOLLOW-UP 2-3 DAYS, HIGH RISK [address], RD
[2019-02-13] MEDS: LORazepam 2 MG/ML VIAL IM PRN (15:43)
[2019-02-13 17:58] LABS: BARBITURATE, URINE NEG. ng/ml (NEG <=200); BENZODIAZEPINE, URINE NEG. ng/mL (NEG <=200); CANNABINOID, URINE NEG. ng/mL (NEG <=50); COCAINE, URINE NEG. ng/mL (NEG <=300); OPIATE, URINE NEG. ng/mL (NEG <=2000); PHENCYCLIDINE SCREEN,URINE NEG. ng/mL (NEG <=25)
[2019-02-13 18:22] LABS: APPEARANCE,URINE CLEAR (CLEAR); BILIRUBIN,URINE NEGATIVE (NEGATIVE); BLOOD, URINE 1+ (NEGATIVE); COLOR,URINE AMBER (YELLOW); LEUKOCYTE ESTERASE ,URINE NEGATIVE (NEGATIVE); NITRITE, URINE NEGATIVE (NEGATIVE); UGLUCOSE TRACE (NEGATIVE)
[2019-02-13 18:43] LABS: RBC,URINE 11-20 (MOD) /HPF (0-5); WBC,URINE 0-5 /HPF (0-5)
--- NOTE | 2019-02-13 19:12 | NUR ---
1900 PT REFUSED HHNTX. PT WILL CALL IF HE NEEDS A HHNTX. NO SOB NOTED. BS ARE CLEAR. SATS ON ROOM AIR 94%
--- NOTE | 2019-02-13 19:25 | NUR ---
RECD. SITTING IN BED, AWAKE, A/OX4. RESPIRATION EVEN AND UNLABORED. WITH PICC LINE AT THE LEFT UPPER ARM, PATENT AND INTACT. AV SHUNT AT THE RIGHT UPPER ARM COVERED WITH DRSG. DRY AND INTACT. PLAN OF CARE FOR THE NIGHT DISCUSSED. VERBALIZED UNDERSTANDING. DENIES PAIN 0/10.
[2019-02-13 19:30] LABS: ANION GAP 16.5 (8-16); CARBON DIOXIDE 28.1 mmol/L (21-32); POTASSIUM 3.6 mmol/L (3.5-5.1)
[2019-02-13 19:35] LABS: CREATININE 7.2 mg/dL (0.7-1.3)
[2019-02-13] MEDS: MIRTAZAPINE 15 MG TAB PO SCH ×2 (21:00→21:21)
--- NOTE | 2019-02-13 21:00 | NUR ---
Patient's Plan of Care was discussed and reviewed with DIVERSITY MANAGER: DELVIN ROBBINS
[2019-02-14] VITALS (8 sets, daily range): BP systolic 120–206; BP diastolic 69–135
--- NOTE | 2019-02-14 00:10 | NUR ---
INFORMED DR. MEJIA, PATIENT BP OS 190/135, HR -106. WILL ORDER BP MEDICATION.
[2019-02-14] MEDS ORDERED: hydrALAZINE 20 MG/ML VIAL IVP SCH (01:00)
--- NOTE | 2019-02-14 01:06 | NUR ---
MEDICATED WITH APRESOLINE ORDERED BY BY PERLA STEINBERG.
[2019-02-14] MEDS: diphenhydrAMINE 50 MG/ML VIAL IVP PRN ×2 (01:28→18:02)
--- NOTE | 2019-02-14 01:28 | NUR ---
PATIENT SITTING ON BED COMPLAINT OF ITCHINESS, MEDICATED WITH BENADRYL 25 MG. IVP BY PERLA STEINBERG.
[2019-02-14] MEDS ORDERED: MELATONIN 3 MG TAB PO SCH (02:00)
--- NOTE | 2019-02-14 02:05 | NUR ---
SITTING ON BED, WATCHING A MOVIE. FEELING BETTER, NO ITCHINESS NOTED. REFUSED TO TAKE MELATONIN, STATED IT WILL NOT WORK FOR HIM.
[2019-02-14] MEDS: LORazepam 2 MG/ML VIAL IM PRN ×3 (05:32→23:44)
--- NOTE | 2019-02-14 05:32 | NUR ---
ADVISED TO GO TO SLEEP BUT DID NOT GO TO SLEEP, STILL WATCHING MOVIE. WITH ANXIETY, MEDICATED WITH ATIVAN BY PERLA STEINBERG.
[2019-02-14] MEDS: hydrALAZINE 25 MG TAB PO SCH ×3 (05:43→21:59)
[2019-02-14] MEDS: cloNIDine 0.1 MG TAB PO SCH ×4 (05:48→21:00)
[2019-02-14] MEDS: MORPHINE SULFATE 2 MG/ML SYR IVP PRN ×3 (06:23→22:29)
[2019-02-14] MEDS: ALBUTEROL SULFATE/IPRATROPIU 3 ML SOL IH SCH ×3 (06:42→19:00)
--- NOTE | 2019-02-14 07:00 | NUR ---
NO ANXIETY, FINALLY ABLE TO SLEEP. WILL ENDORSE TO AM SHIFT NURSE FOR CONTINUITY OF CARE.
--- NOTE | 2019-02-14 07:10 | NUR ---
REPORT RECIEVED FROM NURSE [place]. PT SLEEPING APPEARS COMFORTABLE. BED IN LOW POSITION, CALL LIGHT AND PERSONAL ITEMS WITHIN EASY REACH, NO S/S OF ACUTE DISTRESS NOTED, WILL CONTINUE TO MONITOR.
[2019-02-14] MEDS: CALCIUM ACETATE 667 MG TAB PO SCH ×3 (08:58→17:51)
[2019-02-14] MEDS: SPIRONOLACTONE 50 MG TAB PO SCH (09:00)
[2019-02-14] MEDS: VIT-B COMP/VIT-C/FOLIC ACID 1 TAB PO SCH (09:01)
[2019-02-14] MEDS: CARVEDILOL 6.25 MG TAB PO SCH ×2 (09:01→22:00)
[2019-02-14] MEDS: PRAZOSIN 5 MG CAP PO SCH ×2 (09:02→21:00)
[2019-02-14] MEDS: MINOXIDIL 10 MG TAB PO SCH ×2 (09:02→22:01)
[2019-02-14] MEDS: DILTIAZEM 60 MG TAB PO SCH ×4 (09:03→22:00)
[2019-02-14] MEDS ORDERED: MORPHINE SULFATE 2 MG/ML SYR IVP SCH (09:15)
--- NOTE | 2019-02-14 10:15 | NUR ---
PT SLEEPING AT THIS TIME, APPEARS COMFORTABLE. BED IN LOW POSITION, CALL LIGHT AND PERSONAL ITEMS WITHIN EASY REACH, NO S/S OF ACUTE DISTRESS NOTED, WILL CONTINUE TO MONITOR.
[2019-02-14 11:25] LABS: BASOPHILS # (AUTO) 0.1 K/uL (0.00-0.22); BASOPHILS % (AUTO) 1.9 % (0.0-2.0); EOSINOPHILS # (AUTO) 0.2 K/uL (0-0.4); EOSINOPHILS % (AUTO) 2.8 % (0.0-4.0); HEMATOCRIT 23.5 % (36-52); HEMOGLOBIN 7.8 g/dL (12.0-18.0); LYMPHOCYTES # (AUTO) 0.9 K/uL (2.0-11.5); LYMPHOCYTES % (AUTO) 14.5 % (20.5-51.1); MEAN CORPUSCULAR HEMOGLOBIN 30 pg (27-31); MEAN CORPUSCULAR HGB CONC 33 g/dL (33-37); MEAN CORPUSCULAR VOLUME 90.8 fL (80-94); MONOCYTES # (AUTO) 0.3 K/uL (0.8-1.0); MONOCYTES % (AUTO) 4.4 % (1.7-9.3); NEUTROPHILS % (AUTO) 76.4 % (42.2-75.2); PLATELET COUNT (AUTO) 224 K/uL (140-450); RED BLOOD CELL COUNT(AUTO) 2.59 MIL/uL (4.20-6.10); RED CELL DISTRIBUTION WIDTH 16.3 % (11.6-13.7); WHITE BLOOD COUNT (AUTO) 6.5 K/uL (4.8-10.8)
[2019-02-14 11:52] LABS: MAGNESIUM 1.9 mg/dL (1.8-2.4); PHOSPHORUS 6.2 mg/dL (2.5-4.9)
[2019-02-14 11:57] LABS: ANION GAP 17.7 (8-16); CARBON DIOXIDE 25.7 mmol/L (21-32); POTASSIUM 3.4 mmol/L (3.5-5.1)
[2019-02-14 11:58] LABS: CREATININE 8.7 mg/dL (0.7-1.3)
--- NOTE | 2019-02-14 13:00 | NUR ---
PT A/O ABLE TO COMMUNICATE NEEDS, STATES HE IS FEELING ANXIOUS AND REQUESTED ATIVAN, PER PT HE IS HAVING PAIN BUT FEELS THE CURRENT MEDICATIONS ARE NOT STRONG ENOUGH, WILL NOTIFY MD OF PT CONCERNS, PT REFUSES PAIN MEDICATION AT THIS TIME. BED IN LOW POSITION, CALL LIGHT AND PERSONAL ITEMS WITHIN EASY REACH, WILL CONTINUE TO MONITOR AND ADMINISTER MEDICATION PER ORDER.
--- NOTE | 2019-02-14 14:15 | NUR ---
PT SLEEPING AT THIS TIME, BED IN LOW POSITION, CALL LIGHT AND PERSONAL ITEMS WITHIN EASY REACH, WILL CONTINUE TO MONITOR.
--- NOTE | 2019-02-14 14:50 | NUR ---
REQUEST TRANSITION COACH TO PAGE DR CASTRO TO CLARIFY IF PT WILL HAVE HEMODIALYSIS TODAY
--- NOTE | 2019-02-14 15:35 | NUR ---
DR CASTRO PAGED TO VERIFY IF PT WILL HAVE HD TODAY, ITS IN THE NOTES BUT NOT THE ORDER, HD NURSE IN HOUSE TO DIALIZE ANOTHER PT.
--- NOTE | 2019-02-14 16:23 | NUR ---
SPOKE W DR CASTRO; PT TO HAVE HD TODAY, NOTIFIED HD NURSE, NOTIFIED CT PT TO HAVE HD AT 6PM, WILL COME TO TRANSPORT PT AT [address] ORDERED
--- NOTE | 2019-02-14 16:25 | NUR ---
PT NOTIFIED OF PLAN AND IS AGREEABLE, HAS BEEN NPO SINCE LUNCH, REMAINS A/O ABLE TO COMMUNICATE NEEDS, NO S/S OF ACUTE DISTRESS NOTED AT THIS TIME, SAFETY PRECAUTIONS IN PLACE. CALL LIGHT AND PERSONAL ITEMS WITHIN EASY REACH, WILL CONTINUE TO MONITOR.
--- NOTE | 2019-02-14 19:00 | NUR ---
PT REMAINS A/O ABLE TO COMMUNICATE NEEDS, RECEIVING HD TREATMENT AT THIS TIME. NO S/S OF ACUTE DISTRESS NOTED , SAFETY PRECAUTIONS IN PLACE. CALL LIGHT AND PERSONAL ITEMS WITHIN EASY REACH, REPORT ENDORSED TO ONCOMING NURSE.
--- NOTE | 2019-02-14 19:01 | NUR ---
RECD. RESTING IN BED, WATCHING MOVIE FROM HIS CELLPHONE. A/OX4. RESPIRATION EVEN AND UNLABORED. DIALYSIS ON GOING VIA RIGHT AV SHUNT. PICC LINE AT THE LEFT UPPER ARM WITH DRESSING DRY AND INTACT. PLAN OF CARE DISCUSSED. VERBALIZED UNDERSTANDING. DENIES PAIN 0/10.
--- NOTE | 2019-02-14 19:16 | NUR ---
PATIENT AWAKE AND ALERT ON ROOM AIR RECEIVING DIALYSIS. DECLINED HHN TREATMENT STATING THAT HE DOES NOT FEEL THAT HE NEEDS IT AT THIS TIME. SPO2 97 ON ROOM AIR HEART RATE 103 AND B/S: CLEAR. ADVISED PATIENT THAT HE CAN CALL LATER FOR TREATMENT IF NEEDED.
--- NOTE | 2019-02-14 19:20 | NUR ---
Patient's Plan of Care was discussed and reviewed with REAL ESTATE LAWYER: DELVIN ROBBINS
--- NOTE | 2019-02-14 19:35 | NUR ---
DIALYSIS NURSE DAVON REQUESTED BP MEDICATION TO BE ADMINISTERED TO PATIENT WHILE DIALYSIS IS ON-GOING. BP HIGH - 197/96, HR- 103. INFORMED DR. MEJIA, VERBALLY ORDERED TO GIVE EARLY NIGHT MEDICATION CATAPRES.
--- NOTE | 2019-02-14 19:45 | NUR ---
MEDICATED WITH CATAPRES 0.3 MG. PO.
[2019-02-14] MEDS: MIRTAZAPINE 15 MG TAB PO SCH (21:00)
--- NOTE | 2019-02-14 21:15 | NUR ---
BP CHECKED - 190/77, HR - 91. PATIENT RESTING COMFORTABLY IN BED.
--- NOTE | 2019-02-14 21:20 | NUR ---
DIALYSIS FINISHED, ABLE TO TAKE OUT 3 LITERS PER DIALYSIS NURSE REPORT. INSTRUCTED PATIENT TO EAT FIRST DINNER LEFT UNTOUCHED AT THE BEDSIDE TABLE.
--- NOTE | 2019-02-14 22:00 | NUR ---
SITTING ON BED, NO DISTRESS NOTED. STILL NOT EATING HIS DINNER, SEEMS NOT TO LIKE IT. STATED AT HOME EVEN WITH REGULAR DINNER, HE EATS ONLY LITTLE. DUE NIGHT MEDICATIONS GIVEN, BP - 157/93, HR - 102, CATAPRES 0.3 MG. NOT GIVEN, WAS GIVEN EARLIER AT [address] MJEIA VERBAL INSTRUCTION. PATIENT REQUESTING TO BE GIVEN ATIVAN, MORPHINE AND ZOFRAN. EXPLAINED ATIVAN AND MORPHINE CANNOT BE GIVEN TOGETHER BECAUSE HIS RESPIRATION AND BP MIGHT BE AFFECTED. SEEMS UPSET STATED, DON'T GIVE ME ANYMORE.
[2019-02-14] MEDS: NACL 0.9% 1,000 ML IV SCH (23:24)
--- NOTE | 2019-02-14 23:44 | NUR ---
WITH ANXIETY, MEDICATED WITH ATIVAN IVP BY PERLA PAIGE.
--- NOTE | 2019-02-14 23:48 | NUR ---
PATIENT COMPLAINED OF ANXIETY. PRN ATIVAN WAS GIVEN. WILL CONTINUE TO MONITOR.
[2019-02-15] VITALS: BP 187/117
--- NOTE | 2019-02-15 00:30 | NUR ---
INFORMED DR. MEJIA, BP - 172/101, HR -106. VERBALLY ORDERED TO CHECK AGAIN AFTER 30 MINUTES AND THEN IF STILL HIGH WILL ORDER BP MEDICATION.
--- NOTE | 2019-02-15 00:40 | NUR ---
NO ANXIETY, RESTING COMFORTABLY IN BED.
--- NOTE | 2019-02-15 01:37 | NUR ---
PATIENT SLEEPING COMFORTABLY IN BED. BP CHECKED - 174/100, HR - 103. INFORMED DR. MEJIA. WILL ORDER MEDICATION.
[2019-02-15] MEDS ORDERED: cloNIDine 0.1 MG TAB PO SCH (03:00)
--- NOTE | 2019-02-15 03:15 | NUR ---
MEDICATED WITH CATAPRES 0.3 MG ORDERED BY .
[2019-02-15 04:00] VITALS: BP 187/103
--- NOTE | 2019-02-15 04:40 | NUR ---
INFORMED DR. MEJIA, PT BP - 180/107, HR - 93. MAY GIVE THE SCHEDULED BP MEDS FOR 0500 BUT NOT CATAPRES, PATIENT WAS ALREADY GIVEN CATAPRES 0.3 MG. PO AT 0315.
[2019-02-15] MEDS: hydrALAZINE 25 MG TAB PO SCH ×3 (04:49→21:12)
[2019-02-15] MEDS: cloNIDine 0.1 MG TAB PO SCH ×3 (04:49→21:09)
--- NOTE | 2019-02-15 06:40 | NUR ---
STILL SLEEPING COMFORTABLY IN BED. BP CHECKED - 165/100, HR 84. WILL ENDORSE TO AM NURSE FOR CONTINUITY OF CARE.
--- NOTE | 2019-02-15 07:00 | NUR ---
ROYAL DUNCAN UNABLE TO DRAW BLOOD FROM THE PICC LINE. WILL ENDORSE TO AM NURSE TO REQUEST MD TO ORDER FOR MED TO DE CLOG THE LINE.
--- NOTE | 2019-02-15 07:10 | NUR ---
CONDITION REMAIN STABLE. ENDORSED TO AM SHIFT NURSE FOR CONTINUITY OF CARE.
--- NOTE | 2019-02-15 08:02 | NUR ---
RECEIVED BEDSIDE REPORT FROM PM RN PT APPEARS STABLE AND IN NO APPARENT DISTRESS. PT IS AWAKE AND SITTING UP IN BED. PT HAS RIGHT UPPER ARM AV SHUNT AND LEFT UPPER ARM PICC LINE. ALL SAFETY MEASURES ARE IN PLACE WILL CONTINUE TO MONITOR.
--- NOTE | 2019-02-15 08:08 | NUR ---
AWAKE AND ALERT VERBALLY RESPONSIVE NO PULMONARY DISTRESS NOTED PATIENT REFUSES HHN THERAPY AND RESPIRATORY DRUG AT THIS TIME DUE TO BREAKFAST TRAY VOLUNTEER FIRE FIGHTER TO ATTEMPT AT A LATER TIME
[2019-02-15 08:30] VITALS: BP 172/98
[2019-02-15] MEDS: ALBUTEROL SULFATE/IPRATROPIU 3 ML SOL IH SCH ×3 (08:57→19:18)
[2019-02-15] MEDS ORDERED: ALTEPLASE 2 MG VIAL MC SCH (09:00)
[2019-02-15] MEDS: VIT-B COMP/VIT-C/FOLIC ACID 1 TAB PO SCH (09:20)
[2019-02-15] MEDS: DILTIAZEM 60 MG TAB PO SCH ×4 (09:20→21:06)
[2019-02-15] MEDS: CALCIUM ACETATE 667 MG TAB PO SCH ×3 (09:20→17:28)
[2019-02-15] MEDS: CARVEDILOL 6.25 MG TAB PO SCH (09:21)
[2019-02-15] MEDS: SPIRONOLACTONE 50 MG TAB PO SCH (09:21)
[2019-02-15] MEDS: LORazepam 2 MG/ML VIAL IM PRN (09:22)
[2019-02-15] MEDS: MINOXIDIL 10 MG TAB PO SCH ×2 (09:22→21:07)
--- NOTE | 2019-02-15 09:58 | NUR ---
PT COMPLAINED OF ANXIETY. ATTEMPTED TO GIVE PT ATIVAN IM SINCE PICC LINE IS CLOTTED. PT STATED HE WANTS TO WAIT TIL PICC LINE CLOT IS RESOLVED.
[2019-02-15] MEDS: EPOETIN ALFA 10,000 UNITS/ML VIAL SUBQ SCH (10:14)
[2019-02-15] MEDS: PRAZOSIN 5 MG CAP PO SCH ×2 (10:14→21:07)
[2019-02-15] MEDS ORDERED: LORazepam 2 MG/ML VIAL IVP SCH (11:00)
[2019-02-15 11:12] LABS: BASOPHILS # (AUTO) 0.1 K/uL (0.00-0.22); BASOPHILS % (AUTO) 2.1 % (0.0-2.0); EOSINOPHILS # (AUTO) 0.3 K/uL (0-0.4); EOSINOPHILS % (AUTO) 3.9 % (0.0-4.0); HEMATOCRIT 22.6 % (36-52); HEMOGLOBIN 7.5 g/dL (12.0-18.0); LYMPHOCYTES # (AUTO) 0.8 K/uL (2.0-11.5); LYMPHOCYTES % (AUTO) 11.6 % (20.5-51.1); MEAN CORPUSCULAR HEMOGLOBIN 30 pg (27-31); MEAN CORPUSCULAR HGB CONC 33 g/dL (33-37); MEAN CORPUSCULAR VOLUME 90.4 fL (80-94); MONOCYTES # (AUTO) 0.4 K/uL (0.8-1.0); MONOCYTES % (AUTO) 5.4 % (1.7-9.3); NEUTROPHILS # (AUTO) 5.4 K/uL (1.8-7.7); PLATELET COUNT (AUTO) 206 K/uL (140-450); RED CELL DISTRIBUTION WIDTH 16.7 % (11.6-13.7)
[2019-02-15] MEDS: MORPHINE SULFATE 2 MG/ML SYR IVP PRN ×3 (11:24→23:00)
[2019-02-15 11:27] LABS: ANION GAP 16.7 (8-16); CARBON DIOXIDE 28.1 mmol/L (21-32); POTASSIUM 3.8 mmol/L (3.5-5.1)
[2019-02-15 11:31] LABS: CREATININE 6.7 mg/dL (0.7-1.3); MAGNESIUM 1.8 mg/dL (1.8-2.4); PHOSPHORUS 4.7 mg/dL (2.5-4.9)
--- NOTE | 2019-02-15 11:34 | NUR ---
FREQUENT ROUNDING ON PT PT APPEARS STABLE AND IN NO APPARENT DISTRESS. ALL SAFETY MEASURES ARE IN PLACE
[2019-02-15 12:05] VITALS: BP 160/72
[2019-02-15] MEDS: diphenhydrAMINE 50 MG/ML VIAL IVP PRN ×2 (12:52→23:00)
--- NOTE | 2019-02-15 13:46 | NUR ---
FREQUENT ROUNDING ON PT PT APPEARS STABLE AND IN NO APPARENT DISTRESS. ALL SAFETY MEASURES ARE IN PLACE
--- NOTE | 2019-02-15 14:52 | NUR ---
PT REFUSED TX AT THIS TIME. NO SOB NOTED.
--- NOTE | 2019-02-15 15:46 | NUR ---
FREQUENT ROUNDING ON PT PT APPEARS STABLE AND IN NO APPARENT DISTRESS. ALL SAFETY MEASURES ARE IN PLACE
[2019-02-15 16:30] VITALS: BP 142/76
--- NOTE | 2019-02-15 19:38 | NUR ---
ENDORSED PT TO PM RN PT AWAKE IN BED PT RECEIVING DIALYSIS AT THIS TIME. ALL SAFETY MEASURES ARE IN PLACE
--- NOTE | 2019-02-15 19:39 | NUR ---
RECD. RESTING IN BED, AWAKE, A/OX4. RESPIRATION EVEN AND UNLABORED. DIALYSIS ON GOING VIA RIGHT AV SHUNT. WITH PICC LINE AT THE LEFT UPPER ARM, PATENT AND INTACT. PATIENT WATCHING MOVIE. DENIES PAIN 0/10.
[2019-02-15 20:00] VITALS: BP 168/103
--- NOTE | 2019-02-15 20:28 | NUR ---
CANDICE HERNADEZ AND RUNNING. HEPARIN GIVEN SUBQ. PT TOLERATED WELL. Addendum: 02/15/19 at 2138 by Justo Parsons RN WRONG PATIENT.
--- NOTE | 2019-02-15 20:45 | NUR ---
DIALYSIS STILL ON GOING, ENDORSED TO PERLA MCKEON FOR CONTINUITY OF CARE.
[2019-02-15] MEDS: MIRTAZAPINE 15 MG TAB PO SCH (21:00)
--- NOTE | 2019-02-15 21:06 | NUR ---
HEPARIN AND REMERON REFUSED. PRAZOSIN, LONITEN, COREG, CARDIZEM, AND CATAPRES GIVEN PO. PT TOLERATED WELL. MD ORDERED TO HOLD APRESOLINE AFTER CLONIDINE REASSESSMENT. Addendum: 02/15/19 at 2311 by Justo Parsons RN TYL GIVEN FOR FEVER OF 100.9. PT TOLERATED WELL.
[2019-02-15] MEDS: ACETAMINOPHEN 325 MG TAB PO PRN (21:08)
[2019-02-15] MEDS: CARVEDILOL 12.5 MG TAB PO SCH (21:12)
--- NOTE | 2019-02-15 22:39 | NUR ---
APRESOLINE GIVEN AFTER CLONIDINE REASSESSMENT. BP 181/109.
--- NOTE | 2019-02-15 23:00 | NUR ---
BENADRYL AND MORPHINE GIVEN IVP. PT TOLERATED WELL.
[2019-02-15] MEDS: NACL 0.9% 1,000 ML IV SCH (23:24)
[2019-02-16] VITALS: BP 174/106
[2019-02-16] MEDS: LORazepam 2 MG/ML VIAL IM PRN ×2 (00:03→23:45)
--- NOTE | 2019-02-16 00:03 | NUR ---
ATIVAN GIVEN FOR ANXIETY. PT TOLERATED WELL.
--- NOTE | 2019-02-16 02:15 | NUR ---
PT AWAKE AND ALERT WATCHING MOVIES ON HIS PHONE. NO S/S OF DISTRESS NOTED. RESPIRATIONS EVEN, UNLABORED, AND WNL. WILL CONTINUE TO MONITOR.
[2019-02-16 04:00] VITALS: BP 156/104
[2019-02-16] MEDS: hydrALAZINE 25 MG TAB PO SCH ×3 (04:13→20:36)
--- NOTE | 2019-02-16 04:13 | NUR ---
BP 156/104 AND HR 86. HYDRALAZINE GIVEN PO. PT TOLERATED WELL. CLONIDINE HELD FOR MORNING SHIFT IF BP INCREASES.
[2019-02-16] MEDS: MORPHINE SULFATE 2 MG/ML SYR IVP PRN ×3 (06:01→22:10)
--- NOTE | 2019-02-16 06:01 | NUR ---
MORPHINE GIVEN FOR 7/10 PAIN. PT TOLERATED WELL.
--- NOTE | 2019-02-16 06:42 | NUR ---
PT SLEEPING COMFORTABLY BUT AROUSABLE. NO S/S OF DISTRESS NOTED. TELE MONITORING. PT IN STABLE CONDITION.
[2019-02-16] MEDS: ALBUTEROL SULFATE/IPRATROPIU 3 ML SOL IH SCH ×3 (07:00→19:54)
[2019-02-16 07:11] LABS: BASOPHILS # (AUTO) 0.2 K/uL (0.00-0.22); BASOPHILS % (AUTO) 2.9 % (0.0-2.0); EOSINOPHILS # (AUTO) 0.3 K/uL (0-0.4); EOSINOPHILS % (AUTO) 4.9 % (0.0-4.0); HEMATOCRIT 22.3 % (36-52); HEMOGLOBIN 7.3 g/dL (12.0-18.0); LYMPHOCYTES # (AUTO) 1.1 K/uL (2.0-11.5); LYMPHOCYTES % (AUTO) 20.2 % (20.5-51.1); MEAN CORPUSCULAR HEMOGLOBIN 30 pg (27-31); MEAN CORPUSCULAR HGB CONC 33 g/dL (33-37); MEAN CORPUSCULAR VOLUME 91.3 fL (80-94); MONOCYTES # (AUTO) 0.3 K/uL (0.8-1.0); MONOCYTES % (AUTO) 5.4 % (1.7-9.3); NEUTROPHILS # (AUTO) 3.7 K/uL (1.8-7.7); NEUTROPHILS % (AUTO) 66.6 % (42.2-75.2); PLATELET COUNT (AUTO) 190 K/uL (140-450); RED BLOOD CELL COUNT(AUTO) 2.45 MIL/uL (4.20-6.10); RED CELL DISTRIBUTION WIDTH 16.5 % (11.6-13.7); WHITE BLOOD COUNT (AUTO) 5.6 K/uL (4.8-10.8)
[2019-02-16 07:17] LABS: ANION GAP 13.4 (8-16); CARBON DIOXIDE 28.9 mmol/L (21-32); POTASSIUM 3.3 mmol/L (3.5-5.1)
[2019-02-16 07:35] LABS: MAGNESIUM 1.7 mg/dL (1.8-2.4); PHOSPHORUS 4.3 mg/dL (2.5-4.9)
--- NOTE | 2019-02-16 07:52 | NUR ---
RECEIVED BEDSIDE REPORT FROM PM RN PT APPEARS STABLE AND IN NO APPARENT DISTRESS. PT IS SITTING UP IN BED, ALL SAFETY MEASURES ARE IN PLACE, LEFT UPPER ARM PICC IN PLACE. RIGHT UPPER ARM AV SHUNT IN PLACE. WILL CONTINUE TO MONITOR.
[2019-02-16 08:01] LABS: CREATININE 4.8 mg/dL (0.7-1.3)
[2019-02-16] MEDS: cloNIDine 0.1 MG TAB PO SCH ×3 (08:14→20:38)
[2019-02-16] MEDS: VIT-B COMP/VIT-C/FOLIC ACID 1 TAB PO SCH (08:15)
[2019-02-16] MEDS: DILTIAZEM 60 MG TAB PO SCH ×4 (08:15→20:37)
[2019-02-16] MEDS: CARVEDILOL 12.5 MG TAB PO SCH ×2 (08:15→20:39)
[2019-02-16] MEDS: CALCIUM ACETATE 667 MG TAB PO SCH ×3 (08:15→17:19)
[2019-02-16] MEDS: SPIRONOLACTONE 50 MG TAB PO SCH (08:16)
[2019-02-16] MEDS: MINOXIDIL 10 MG TAB PO SCH ×2 (08:19→20:39)
[2019-02-16] MEDS: PRAZOSIN 5 MG CAP PO SCH ×2 (08:20→20:39)
[2019-02-16] MEDS: diphenhydrAMINE 50 MG/ML VIAL IVP PRN ×3 (08:27→22:09)
[2019-02-16 08:45] VITALS: BP 177/110
[2019-02-16] MEDS ORDERED: diphenhydrAMINE 50 MG/ML VIAL IVP PRN (09:00)
--- NOTE | 2019-02-16 11:45 | NUR ---
COLLECTED URINE SAMPLE FROM PATIENT AND TOOK IT TO THE LAB
[2019-02-16 12:03] VITALS: BP 153/100
[2019-02-16 12:23] LABS: APPEARANCE,URINE CLEAR (CLEAR); BILIRUBIN,URINE NEGATIVE (NEGATIVE); BLOOD, URINE TRACE-I (NEGATIVE); COLOR,URINE YELLOW (YELLOW); LEUKOCYTE ESTERASE ,URINE TRACE (NEGATIVE); NITRITE, URINE NEGATIVE (NEGATIVE); PH,URINE 8.5 (5.0-9.0); UGLUCOSE TRACE (NEGATIVE)
[2019-02-16 12:42] LABS: RBC,URINE 0-5 /HPF (0-5); WBC,URINE 0-5 /HPF (0-5)
--- NOTE | 2019-02-16 13:46 | NUR ---
FREQUENT ROUNDING ON PT PT APPEARS STABLE AND IN NO APPARENT DISTRESS. ALL SAFETY MEASURES ARE IN PLACE
--- NOTE | 2019-02-16 14:25 | NUR ---
02/16/19 RD FOLLOW UP COMPLETED PLEASE REFER TO NUTRITION ASSESSMENT UNDER CARE ACTIVITY FOR ESTIMATED NUTRITIONAL NEEDS. 1. CONTINUE RENAL, CARDIAC, NA2GM DIET TOLERATED 2. RECOMMEND NEPRO TID 3. ENCOURAGED INCREASING PO INTAKE 4. RD TO FOLLOW-UP 2-3 DAYS, HIGH RISK [address], RD
--- NOTE | 2019-02-16 15:46 | NUR ---
FREQUENT ROUNDING ON PT PT APPEARS STABLE AND IN NO APPARENT DISTRESS. ALL SAFETY MEASURES ARE IN PLACE, WILL CONTINUE TO MONITOR
[2019-02-16 18:51] VITALS: BP 165/85
--- NOTE | 2019-02-16 19:15 | NUR ---
REPORT RECEIVED FROM AM NURSE AT BEDSIDE. PT IN STABLE CONDITION. AAOX4. INTRODUCED SELF TO PT. BOARD UPDATED. NO COMPLAINTS OF PAIN. NO SOB. AFEBRILE. PT IS AMBULATORY. PT HAS HD ACCESS R UA. IV SITE L UA PICC DOUBLE LUMEN SL PATENT AND INTACT. SKIN WARM, DRY, AND INTACT WITH NO OPEN WOUNDS. BED LOCKED IN LOW POSITION. CALL RODRIGUEZ WITHIN REACH. SAFETY PRECAUTION IN PLACE. ALL NEEDS MET AT THIS TIME.
--- NOTE | 2019-02-16 19:32 | NUR ---
ENDORSED PT TO PM RN PT AWAKE IN BED PT APPEARS STABLE AND IN NO APPARENT DISTRESS. ALL SAFETY MEASURES ARE IN PLACE
--- NOTE | 2019-02-16 20:05 | NUR ---
RECEIVED PATIENT ON ROOM AIR, PULSE OX SAT 97%. SCHEDULED BREATHING TREATMENT ADMINISTERED. TOLERATED TX WELL WITHOUT ADVERSE SIDE EFFECTS. NO ACUTE RESPIRATORY DISTRESS NOTED AT THIS TIME. PT MADE AWARE OF MEDICATION FREQUENCY. WILL CONTINUE TO MONITOR.
--- NOTE | 2019-02-16 20:36 | NUR ---
CATAPRES, APRESOLINE, CARDIZEM, COREG, LONITEN, AND PRAZOSIN GIVEN PO. TYL GIVEN FOR TEMPERATURE OF 100.3. REMERON AND HEPARIN REFUSED. PT TOLERATED WELL.
[2019-02-16] MEDS: ACETAMINOPHEN 325 MG TAB PO PRN (20:40)
[2019-02-16] MEDS: MIRTAZAPINE 15 MG TAB PO SCH (20:40)
--- NOTE | 2019-02-16 22:10 | NUR ---
MORPHINE GIVEN FOR 7/10 PAIN. BENADRYL GIVEN FOR ITCHINESS. PT TOLERATED WELL.
[2019-02-16] MEDS: NACL 0.9% 1,000 ML IV SCH (23:24)
--- NOTE | 2019-02-16 23:45 | NUR ---
ATIVAN GIVEN FOR ANXIETY. PT TOLERATED WELL.
[2019-02-17] VITALS: BP 173/117
--- NOTE | 2019-02-17 01:45 | NUR ---
PT AWAKE AND ALERT WATCHING MOVIES ON HIS PHONE. NO S/S OF DISTRESS NOTED.
[2019-02-17 04:00] VITALS: BP 155/99
[2019-02-17] MEDS: hydrALAZINE 25 MG TAB PO SCH ×2 (04:09→12:27)
--- NOTE | 2019-02-17 04:09 | NUR ---
HYDRALAZINE GIVEN PO. PT TOLERATED WELL. Addendum: 02/17/19 at 0622 by Justo Parsons RN WILL HOLD CLONIDINE FOR MORNING SHIFT IN CASE HIS BLOOD PRESSURE INCREASES.
[2019-02-17] MEDS: cloNIDine 0.1 MG TAB PO SCH ×3 (04:10→12:26)
--- NOTE | 2019-02-17 06:20 | NUR ---
PT SLEEPING COMFORTABLY BUT AROUSABLE. NO S/S OF DISTRESS NOTED. PT IN STABLE CONDITION.
[2019-02-17] MEDS: diphenhydrAMINE 50 MG/ML VIAL IVP PRN ×2 (06:28→11:05)
--- NOTE | 2019-02-17 06:28 | NUR ---
BENADRYL GIVEN FOR ITCHINESS. PT TOLERATED WELL.
--- NOTE | 2019-02-17 07:28 | NUR ---
RECEIVED BEDSIDE REPORT FROM PM RN PT APPEARS STABLE AND IN NO APPARENT DISTRESS. LEFT UPPER ARM PICC LINE RIGHT UPPER ARM AV SHUNT. ALL SAFETY MEASURES ARE IN PLACE. WILL CONTINUE TO MONITOR
[2019-02-17 07:47] LABS: BASOPHILS # (AUTO) 0.2 K/uL (0.00-0.22); BASOPHILS % (AUTO) 2.6 % (0.0-2.0); EOSINOPHILS # (AUTO) 0.3 K/uL (0-0.4); EOSINOPHILS % (AUTO) 5.1 % (0.0-4.0); HEMATOCRIT 22.1 % (36-52); HEMOGLOBIN 7.2 g/dL (12.0-18.0); LYMPHOCYTES # (AUTO) 1.2 K/uL (2.0-11.5); LYMPHOCYTES % (AUTO) 20.4 % (20.5-51.1); MEAN CORPUSCULAR HEMOGLOBIN 30 pg (27-31); MEAN CORPUSCULAR HGB CONC 33 g/dL (33-37); MEAN CORPUSCULAR VOLUME 91.1 fL (80-94); MONOCYTES # (AUTO) 0.3 K/uL (0.8-1.0); MONOCYTES % (AUTO) 4.5 % (1.7-9.3); NEUTROPHILS # (AUTO) 4.1 K/uL (1.8-7.7); NEUTROPHILS % (AUTO) 67.4 % (42.2-75.2); PLATELET COUNT (AUTO) 203 K/uL (140-450); RED BLOOD CELL COUNT(AUTO) 2.43 MIL/uL (4.20-6.10); RED CELL DISTRIBUTION WIDTH 16.3 % (11.6-13.7); WHITE BLOOD COUNT (AUTO) 6.1 K/uL (4.8-10.8)
[2019-02-17] MEDS: ALBUTEROL SULFATE/IPRATROPIU 3 ML SOL IH SCH ×2 (07:56→14:08)
[2019-02-17 08:08] LABS: MAGNESIUM 1.7 mg/dL (1.8-2.4); PHOSPHORUS 4.3 mg/dL (2.5-4.9)
[2019-02-17] MEDS: CARVEDILOL 12.5 MG TAB PO SCH (08:15)
[2019-02-17] MEDS: DILTIAZEM 60 MG TAB PO SCH ×2 (08:16→12:27)
[2019-02-17] MEDS: CALCIUM ACETATE 667 MG TAB PO SCH ×2 (08:17→12:27)
[2019-02-17] MEDS: SPIRONOLACTONE 50 MG TAB PO SCH (08:17)
[2019-02-17] MEDS: VIT-B COMP/VIT-C/FOLIC ACID 1 TAB PO SCH (08:17)
[2019-02-17 08:18] LABS: ANION GAP 15.6 (8-16); CARBON DIOXIDE 28.7 mmol/L (21-32); POTASSIUM 3.3 mmol/L (3.5-5.1)
[2019-02-17] MEDS: MINOXIDIL 10 MG TAB PO SCH (08:19)
[2019-02-17] MEDS: PRAZOSIN 5 MG CAP PO SCH (08:19)
[2019-02-17] MEDS: EPOETIN ALFA 10,000 UNITS/ML VIAL SUBQ SCH (08:21)
[2019-02-17] MEDS: MORPHINE SULFATE 2 MG/ML SYR IVP PRN (08:23)
--- NOTE | 2019-02-17 08:45 | NUR ---
DISCHARGE ORDER PLACED SPOKE WITH DR. MEJIA SHE STATED TO WAIT FOR AROUND 10:30-11 TO RECHECK THE BLOOD PRESSURE AND THEN DISCHARGE THE PATIENT AFTER
[2019-02-17 08:46] VITALS: BP 179/106
[2019-02-17] MEDS ORDERED: MAGNESIUM OXIDE 400 MG TAB PO SCH (09:00)
[2019-02-17] MEDS ORDERED: SPIR25TA21 PO (09:08)
[2019-02-17] MEDS ORDERED: INUL1CTB PO (09:08)
[2019-02-17] MEDS ORDERED: CEPH250C16 PO (09:08)
[2019-02-17] MEDS ORDERED: DILT-135 PO (09:08)
[2019-02-17] MEDS ORDERED: CARV25TA PO (09:08)
--- NOTE | 2019-02-17 10:34 | NUR ---
FREQUENT ROUNDING ON PT PT APPEARS STABLE AND IN NO APPARENT DISTRESS. ALL SAFETY MEASURES ARE IN PLACE WILL CONTINUE TO MONITOR
[2019-02-17] MEDS: LORazepam 2 MG/ML VIAL IM PRN (11:06)
[2019-02-17 12:03] VITALS: BP 171/95
--- NOTE | 2019-02-17 12:36 | NUR ---
FREQUENT ROUNDING ON PT PT APPEARS STABLE AND IN NO APPARENT DISTRESS. ALL SAFETY MEASURES ARE IN PLACE WILL CONTINUE TO MONITOR.
[2019-02-17 13:30] VITALS: BP 170/95
--- NOTE | 2019-02-17 15:15 | NUR ---
REVIEWED DISCHARGE INSTRUCTIONS WITH PATIENT. PT LATEST VITAL WAS 140/103 DR. MEJIA WAS AT BEDSIDE REVIEWING DISCHARGE INSTRUCTIONS WITH PATIENT. PT HAS A SCHEDULED FOLLOW UP APPOINTMENT WITH HIS PRIMARY CARE PROVIDERDR. ANSHUL SINGH 02/23/19 AT 1430 PT IS AWARE. REVIEWED DISCHARGE PRESCRIPTIONS. AND WHERE HE CAN PICK THEM UP AT. REMOVED PT PICC LINE AND APPLIED PRESSURE FOR 5 MINUTES. PT AMBULATED OFF THE UNIT. PT AMBULATED WITH A STEADY GAIT. PT LEFT WITH ALL HIS PERSONAL BELONGINGS. PT HAS RIGHT UPPER ARM AV SHUNT IN PLACE THAT WAS PRESENT ON ADMISSION. PT IS AWARE TO GO TO THE NEAREST EMERGENCY ROOM IN CASE OF ANY EMERGENCY.
== END 2019-02-17 15:05 | disposition home or self-care (01) | DRG 194 ==
LOC: MED 18:24 → MTU 23:21
PROVIDERS: ADMIT General Practice; ATTEND General Practice
PROC: 30233N1 Transfusion of Nonautologous Red Blood Cells into Peripheral Vein, Percutaneous Approach (ICD-10-PCS; principal; 2019-02-13)
PROC: 05H433Z Insertion of Infusion Device into Left Innominate Vein, Percutaneous Approach (ICD-10-PCS; 2019-02-13)
PROC: B54NZZA Ultrasonography of Left Upper Extremity Veins, Guidance (ICD-10-PCS; 2019-02-13)
PROC: 5A1D70Z Performance of Urinary Filtration, Intermittent, Less than 6 Hours Per Day (ICD-10-PCS; 2019-02-13)
PROC: 5A1D70Z Performance of Urinary Filtration, Intermittent, Less than 6 Hours Per Day (ICD-10-PCS; 2019-02-16)
DX: I13.2 Hypertensive heart and chronic kidney disease with heart failure and with stage 5 chronic kidney disease, or end stage renal disease (principal); N17.0 Acute kidney failure with tubular necrosis; R65.11 Systemic inflammatory response syndrome (SIRS) of non-infectious origin with acute organ dysfunction; N18.6 End stage renal disease; E87.1 Hypo-osmolality and hyponatremia; E83.39 Other disorders of phosphorus metabolism; I50.43 Acute on chronic combined systolic (congestive) and diastolic (congestive) heart failure; D63.1 Anemia in chronic kidney disease; F41.9 Anxiety disorder, unspecified; I16.0 Hypertensive urgency; F43.9 Reaction to severe stress, unspecified; Z82.49 Family history of ischemic heart disease and other diseases of the circulatory system; Z83.3 Family history of diabetes mellitus; Z99.2 Dependence on renal dialysis; Z79.899 Other long term (current) drug therapy; Z91.14 Patient's other noncompliance with medication regimen
CPT/HCPCS: 36415; 71045; 71260; 80048; 80053; 80305; 81001; 83605; 83735; 83880; 84100; 84484; 85025; 85610; 85730; 86886; 86900; 86901; 86920; 87040; 87081; 90715; 90935; 93005; 93970; 94640; 96374; 96375; 99285; C1751; J0360; J0885; J1200; J1644; J1940; J2060; J2270; J2405; J2997; J7030; J7620; P9016; Q0092; Q9967